=== PATIENT | female | born 1955 | race Caucasian/White ===

== ENCOUNTER 2017-10-17 16:54 | Emergency (ER) | payer OTHER, SELFPAY ==
[2017-10-17 16:55] VITALS: BP 143/96; PULSE 70; RESP 18; TEMP 36.7; O2SAT 99; BMI 34.8
--- NOTE | 2017-10-17 17:35 | US_ITS ---
STUDY: VENOUS DOPPLER ULTRASOUND - LEFT LOWER EXTREMITY REASON FOR EXAM: Female, 62 years old. Knee pain TECHNIQUE: Ultrasound evaluation of the deep vein system to include wheatley-scale imaging and compression was performed. Wheatley-scale imaging and Doppler sonographic evaluation, including duplex spectral analysis and qualitative color flow sonography, was performed. COMPARISON: None. FINDINGS: Common Femoral Vein: Normal compression, spontaneity and augmentation. Normal color Doppler. Common Femoral Vein/Greater Saphenous Junction: Normal compression. No internal echoes are seen. Deep Femoral Vein: Not imaged Femoral Proximal: Normal compression. No internal echoes are seen. Femoral Middle: Normal compression, spontaneity and augmentation. Normal color Doppler. Femoral Distal: Normal compression. No internal echoes are seen. Popliteal Vein: Normal compression, spontaneity and augmentation. Normal color Doppler. Posterior Tibial Vein: Normal compression. No internal echoes are seen. Peroneal Vein: Normal compression. No internal echoes are seen. US/Venous Duplex Imag/Limited/Uni IMPRESSION: There is no evidence of acute DVT. Electronically Signed: Riccardo Mckeon MD at 18:26 EST , Service support ,
--- NOTE | 2017-10-17 18:32 | ED.VISSUMM ---
- ER Visit Summary Date of Service: 10/17/17 Chief Complaint: Left leg pain History of Present Illness: The patient is a 62 F Intermittent left lower leg pain for the past 3 months. Recently pain starts in her lower leg radiates up to her left hip. No falls or injuries. 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 She did take Tylenol with moderate improvement of symptoms. Denies any back pain. History of right total knee arthroplasty, does still follow orthopedist unknown name at this time. Saw the urgent care who sent her here for rule out DVT. States mild pain behind the back of the knee. No swelling. No chest pains or shortness of breath. Physical Examination: General: Alert and oriented ?3, no acute distress HEENT: Normocephalic, atraumatic. Moist mucosa membranes Neck: supple, nontender. Cardiovascular: Regular rate and rhythm, no murmurs Respiratory: Normal breath sounds, symmetric, no distress Abdomen: Soft, nontender, nondistended Extremities: Nontender, no edema. Straight leg test in the left was negative. Negative logroll of the left. No swelling. DP pulses intact bilaterally. Neuro: no focal neurological deficits. Test Results: Left lower extremity ultrasound: Negative for DVT. Emergency Department Course and Treatment: Ultrasound obtained which was negative. Patient distal pulses. Symptoms radicular symptoms or concerns for radicular symptoms. Discussed sciatica with the patient. Discussed with progressing symptoms, can try gabapentin for which she will ramp. She will start at home. Continue Tylenol as needed. Follow with her PCP for outpatient testing as needed. All questions were answered. Treatment Plan: [] Disposition: Discharge Impression: Left-sided sciatica This note was generated with [employer] dictation software. It may contain incorrect words, spelling, and punctuation that were not noted in review of the chart prior to signing ED Disposition - Plan for ED Patient: Disposition: Home or Assisted Living Chief Complaint: Lower Extremity Injury Diagnosis: Sciatica of left side Instructions: ED Sciatica Prescriptions: Gabapentin [Neurontin] 100 mg PO TID #60 capsule Referrals: Ivan Javier III, MD [Primary Care Provider] - 5-7 Days Additional Instructions: Start gabapentin 1 tab first day, then 1 tab twice a day the next day, then 3 times a day the following day.
--- NOTE | 2017-10-17 18:37 | ED.DCSUM_ITS ---
- ER Visit Summary Date of Service: 10/17/17 Chief Complaint: Left leg pain History of Present Illness: The patient is a 62 F Intermittent left lower leg pain for the past 3 months. Recently pain starts in her lower leg radiates up to her left hip. No falls or injuries. 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 She did take Tylenol with moderate improvement of symptoms. Denies any back pain. History of right total knee arthroplasty, does still follow orthopedist unknown name at this time. Saw the urgent care who sent her here for rule out DVT. States mild pain behind the back of the knee. No swelling. No chest pains or shortness of breath. Physical Examination: General: Alert and oriented ?3, no acute distress HEENT: Normocephalic, atraumatic. Moist mucosa membranes Neck: supple, nontender. Cardiovascular: Regular rate and rhythm, no murmurs Respiratory: Normal breath sounds, symmetric, no distress Abdomen: Soft, nontender, nondistended Extremities: Nontender, no edema. Straight leg test in the left was negative. Negative logroll of the left. No swelling. DP pulses intact bilaterally. Neuro: no focal neurological deficits. Test Results: Left lower extremity ultrasound: Negative for DVT. Emergency Department Course and Treatment: Ultrasound obtained which was negative. Patient distal pulses. Symptoms radicular symptoms or concerns for radicular symptoms. Discussed sciatica with the patient. Discussed with progressing symptoms, can try gabapentin for which she will ramp. She will start at home. Continue Tylenol as needed. Follow with her PCP for outpatient testing as needed. All questions were answered. Treatment Plan: [] Disposition: Discharge Impression: Left-sided sciatica This note was generated with Zympi dictation software. It may contain incorrect words, spelling, and punctuation that were not noted in review of the chart prior to signing ED Disposition - Plan for ED Patient: Disposition: Home or Assisted Living Chief Complaint: Lower Extremity Injury Diagnosis: Sciatica of left side Instructions: ED Sciatica Prescriptions: Gabapentin [Neurontin] 100 mg PO TID #60 capsule Referrals: Ivan Javier III, MD [Primary Care Provider] - 5-7 Days Additional Instructions: Start gabapentin 1 tab first day, then 1 tab twice a day the next day, then 3 times a day the following day.
[2017-10-17 18:59] VITALS: BP 155/93; PULSE 65; RESP 16
== END 2017-10-17 18:59 | disposition home or self-care (01) ==
LOC: ED 18:41
PROVIDERS: Emergency Provider Emergency Medicine; Family Provider Family Medicine; PCP Family Medicine
DX: M54.32 Sciatica, left side (principal); I10 Essential (primary) hypertension; Z79.891 Long term (current) use of opiate analgesic; Z96.651 Presence of right artificial knee joint; Z79.899 Other long term (current) drug therapy
CPT/HCPCS: 93971; 99282

== ENCOUNTER 2021-01-11 13:40 | Emergency (ER) | payer OTHER, SELFPAY ==
[2021-01-11 13:43] VITALS: BP 104/93; PULSE 68; RESP 16; TEMP 36.4; O2SAT 98; BMI 37.5
[2021-01-11 13:45] VITALS: BP 126/77
--- NOTE | 2021-01-11 14:03 | EKG12_ITS ---
Test Reason : NEAR SYNCOPE Blood Pressure : / mmHG Vent. Rate : 068 BPM Atrial Rate : 068 BPM P-R Int : 164 ms QRS Dur : 090 ms QT Int : 424 ms P-R-T Axes : 045 -02 050 degrees QTc Int : 450 ms Normal sinus rhythm Normal ECG Confirmed by NARCISA MANCERA, FAITH ([id number]), managing editor ANN PENN ([id number]) on 01/12/2021 11:30:26 AM Referred By: AJITH Confirmed By:FAITH BREWSTER MD
[2021-01-11] MEDS: 0.9% Normal Saline 1,000 ML 1000 ML IV (14:17)
[2021-01-11 14:32] LABS: Absolute Lymphocyte Count 2.48 X10^3/uL (0.83-4.51); Absolute Neutrophil Count 3.2 X10^3/uL (2.0-7.7); Basophil# 0.05 X10^3/uL; Basophil% 0.8 % (0-1); Eosinophil# 0.16 X10^3/uL; Eosinophils% 2.5 % (0-5); Hematocrit 39.4 % (37-47); Lymphocyte # 2.48 X10^3/ul (0.83-4.51); Lymphocyte % 39.4 % (19-41); Mean Corpuscular Hgb 30.9 pg (27.0-32.0); Mean Corpuscular Volume 93.6 fL (81-99); Monocyte# 0.39 X10^3/uL; Monocyte% 6.2 % (0-10); NRBC Flagged by Analyzer 0 % (0-5); Neutrophil % 50.9 % (47-70); Platelet Count 239 K/mm3 (150-450); RBC Distribution Width CV 12.1 % (11.6-14.6); RBC Distribution Width SD 42.1 fl (35.1-43.9); Red Blood Count 4.21 M/mm3 (4.2-5.4); White Blood Count 6.3 K/mm3 (4.4-11.0)
[2021-01-11 14:50] LABS: Anion Gap 6 (5-15); BUN 16 mg/dL (7-18); BUN/Creat Ratio 14.7 RATIO (10-20); Calcium,Total 9.9 mg/dL (8.5-10.1); Chloride 104 mmol/L (98-107); Creatinine, Serum 1.09 mg/dL (0.55-1.02); EST Glomerular Filtration Rate 54 mL/min (>60); Est Glom Filt Rate - Afr Amer 65 mL/min (>60); Glucose 122 mg/dL (74-106); Potassium 3.4 mmol/L (3.5-5.1); Sodium Level 141 mmol/L (136-145)
--- NOTE | 2021-01-11 15:08 | EDS_ITS ---
HPI History of Present Illness Chief Complaint: Syncope Narrative Narrative: 65-year-old female patient who reports that she had just feeding finished eating lunch when she had the abrupt onset of a sharp left lower quadrant pain. It was 8 out of 10 at worst and it is 2 out of 10 currently. She states that during this episode she felt warm, diaphoretic, and lightheaded. She did not pass out. She denies any chest pain, palpitations, shortness of breath, or nausea. Patient reports that she has had intermittent left lower quadrant pain for the past 9 years. Last episode was 3 to 4 weeks ago. 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 [facility] Medical History Arthritis Hypertension Home Medications lisinopril 20 mg PO DAILY 10/29/13 [History Last Taken Unknown] hydrochlorothiazide 12.5 mg PO DAILY 01/11/21 [History Last Taken Unknown] meloxicam 15 mg PO DAILY 01/11/21 [History Last Taken Unknown] Allergy/AdvReac Type Severity Reaction Status Date / Time Penicillins Allergy Rash Verified 01/11/21 13:45 Sulfa (Sulfonamide Allergy Rash Verified 01/11/21 13:45 Antibiotics) Social History Smoking Status: Never smoker [facility] ED Constitutional Constitutional ED: Denies chills, fever(s) or sweats Eyes Eyes: Denies change in vision ENT ENT ED: Denies sore throat Cardiovascular Cardiovascular: Denies chest pain Respiratory/Chest Respiratory/Chest: Denies cough, dyspnea or dyspnea on exertion Gastrointestinal Gastrointestinal: Reports abdominal pain; Denies diarrhea, melena, nausea or vomiting Genitourinary Genitourinary ED: Denies dysuria or urinary frequency Musculoskeletal Musculoskeletal: Denies myalgias Integumentary Denies rash Neurologic Neurologic: Denies headache(s), paresthesias or weakness EXAM Physical Exam Const Vital Signs: 01/11/21 13:43 01/11/21 13:45 Temperature 97.6 F L Temperature Source Oral Pulse Rate 68 Respiratory Rate 16 Respiratory Effort Normal Non-Labored Respiratory Pattern Normal Blood Pressure 104/93 H 126/77 H Blood Pressure Mean 96 93 Pulse Ox 98 Oxygen Delivery Method Room Air Positive well nourished and well developed General Appearance ED: well developed HEENT Reports normocephalic and head/scalp atraumatic Eyes PERRL Neck no lymphadenopathy, supple and no JVD General: Negative for tenderness Resp normal respiratory effort and clear to auscultation bilaterally Cardio regular rate, regular rhythm and no murmurs GI normal to inspection, nondistended, normoactive bowel sounds and non-tender GI Narrative: No guarding, rebound, or peritoneal signs. Palpation: soft Back/Spine Back/Spine Narrative: Nontender. Extremity General Extremety ED: Negative for edema or tenderness General Extremity: Negative for edema Neuro oriented x3, CN's II-XII intact bilaterally and no sensory deficits noted Sensorium / Orientation: alert Motor Exam: strength 5/5 throughout Psych mental status grossly normal Skin no rashes or lesions noted MDM MDM Lab Data Labs: Laboratory Results - last 24 hr 01/11/21 01/11/21 13:03 13:03 WBC 6.3 RBC 4.21 Hgb 13.0 Hct 39.4 MCV 93.6 MCH 30.9 MCHC 33.0 RDW Std Deviation 42.1 RDW Coeff of Sarah 12.1 Plt Count 239 MPV 12.0 Immature Gran % (Auto) 0.200 Neut % (Auto) 50.9 Lymph % (Auto) 39.4 Stewart % (Auto) 6.2 Eos % (Auto) 2.5 Baso % (Auto) 0.8 Absolute Neuts (auto) 3.2 Absolute Lymphs (auto) 2.48 Nucleated RBC % 0 Sodium 141 Potassium 3.4 L Chloride 104 Carbon Dioxide 31.0 Anion Gap 6 BUN 16 Creatinine 1.09 H Estim Creat Clear Calc 43.70 Est GFR (MDRD) Af Amer 65 Est GFR (MDRD) Non-Af 54 L BUN/Creatinine Ratio 14.7 Glucose 122 H Calcium 9.9 Troponin I < 0.015 EKG Initial EKG: Attestation: I personally reviewed and interpreted this EKG as follows: Interpretation: Sinus Rhythm Comments: EKG is sinus at [address] changes. No evidence of Brugada or HOCM. Normal intervals. Treatment and Re-Evaluation Comments:: Emergency department course: Patient had an IV placed. She was given a liter normal saline. She is resting comfortably. Her history is consistent with dehydration exacerbated by a vagal episode after her abdominal pain. She has no abdominal pain at this time reports that it is intermittent and chronic in nature. Treatment plan: Patient be discharged instructions to push fluids. Follow-up with her primary care physician in 3 to 5 days. Return to the emergency department for any worsening symptoms. Disposition: To home in improved and stable condition. This note was generated with Ticket[employer] dictation software. It may contain incorrect words, spelling, and punctuation that were not noted in review of the chart prior to signing. Discharge Plan Triage Chief Complaint: Syncope ED Provider: Spencer Bunrham Dx/Rx/DC Orders Clinical Impression: Acute dehydration, Vasovagal near syncope Instructions: ED Near-Fainting- Vagal Reaction Prescriptions: No Action lisinopril 20 MG tablet 20 mg PO DAILY RF: 0 meloxicam 15 mg Tablet 15 mg PO DAILY RF: 0 hydrochlorothiazide 12.5 mg Tablet 12.5 mg PO DAILY RF: 0 Primary Care Provider: Chuck Goldstein Referrals: Chuck Goldstein MD [Primary Care Provider] - 3-5 Days
[2021-01-11 15:23] VITALS: BP 126/73; PULSE 71; RESP 19; O2SAT 100
== END 2021-01-11 15:42 | disposition home or self-care (01) ==
LOC: ED 14:30
PROVIDERS: Emergency Provider Emergency Medicine; PCP Family Medicine
DX: E86.0 Dehydration (principal); R55 Syncope and collapse; I10 Essential (primary) hypertension; M19.90 Unspecified osteoarthritis, unspecified site; Z79.899 Other long term (current) drug therapy
CPT/HCPCS: 80048; 84484; 85025; 93005; 96360; 99285

== ENCOUNTER 2021-06-09 14:49 | Outpatient (CLI) | payer OTHER, SELFPAY ==
[2021-06-09] MEDS: 0.9% Saline Lock 10 ML Syringe IV (15:35)
[2021-06-09 15:36] VITALS: BP 114/76; PULSE 70; RESP 16; TEMP 36.6; O2SAT 100; BMI 33.4
[2021-06-09 16:36] VITALS: BP 139/86; PULSE 56; RESP 16; TEMP 37; O2SAT 100
[2021-06-09 17:33] VITALS: BP 146/79; PULSE 63; RESP 16; TEMP 36.8; O2SAT 100
== END 2021-06-09 17:36 | disposition home or self-care (01) ==
LOC: MS3OUT 14:52 → MS3 14:52
PROVIDERS: PCP Family Medicine; Referring Provider Nurse Practitioner Adult Health; Visit Provider Nurse Practitioner Adult Health
DX: Z23 Encounter for immunization (principal); U07.1 COVID-19
CPT/HCPCS: J7050; M0245; Q0245; A4216

== ENCOUNTER 2022-07-11 15:57 | Emergency (ER) | payer MEDICARE, SELFPAY ==
[2022-07-11 15:58] VITALS: BP 158/88; PULSE 74; RESP 16; TEMP 35.8; O2SAT 98; BMI 35.4
[2022-07-11 16:27] LABS: Mucous, Urine 0 SEEN /hpf (<or=2+); Red Blood Cells-Urine 0 SEEN /hpf (0-5); Squamous Epithelial Cells - UA 0 SEEN /hpf (5-10)
[2022-07-11 16:28] LABS: Absolute Lymphocyte Count 2.37 X10^3/uL (0.83-4.51); Absolute Neutrophil Count 5.3 X10^3/uL (2.0-7.7); Basophil# 0.04 X10^3/uL; Basophil% 0.5 % (0-1); Eosinophil# 0.07 X10^3/uL; Eosinophils% 0.8 % (0-5); Lymphocyte # 2.37 X10^3/ul (0.83-4.51); Lymphocyte % 27.9 % (19-41); Mean Corp Hgb Conc 32.6 g/dL (32-36); Mean Corpuscular Hgb 30.8 pg (27.0-32.0); Mean Corpuscular Volume 94.5 fL (81-99); Monocyte# 0.68 X10^3/uL; NRBC Flagged by Analyzer 0 % (0-5); Neutrophil # 5.32 X10^3/uL (2.7-7.7); Neutrophil % 62.6 % (47-70); Platelet Count 251 K/mm3 (150-450); RBC Distribution Width CV 12.1 % (11.6-14.6); RBC Distribution Width SD 42.4 fl (35.1-43.9); Red Blood Count 4.55 M/mm3 (4.2-5.4); White Blood Count 8.5 K/mm3 (4.4-11.0)
[2022-07-11 16:31] LABS: Color, Urine Yellow (Yellow); Glucose, Dipstick Normal (Normal); Ketone-Dipstick Negative (Negative); Leukocyte Esterase-Dipstick 25 /ul (Negative); Nitrite-Dipstick Negative (Negative); Occult Blood-Urine 50 /ul (Negative); Protein-Dipstick Negative (Negative); Specific Gravity, Urine 1.015 (1.002-1.030); Urine Bilirubin Dipstick Negative (Negative); Urine Clarity Clear (Clear); Urine Urobilinogen Normal (Normal)
[2022-07-11 16:34] LABS: Bacteria RARE /hpf (None Seen); White Blood Cells 0-5 SEEN /hpf (0-5)
[2022-07-11 16:42] LABS: Anion Gap 6 (5-15); BUN 12 mg/dL (7-18); Calcium,Total 9.6 mg/dL (8.5-10.1); Chloride 103 mmol/L (98-107); EST Glomerular Filtration Rate 76 mL/min (>60); Est Glom Filt Rate - Afr Amer 92 mL/min (>60); Estimated Creatinine Clearance 55.45 ml/min; Glucose 98 mg/dL (74-106); Potassium 3.6 mmol/L (3.5-5.1); Sodium Level 140 mmol/L (136-145)
--- NOTE | 2022-07-11 18:16 | CT_ITS ---
STUDY: CT ABDOMEN AND PELVIS WITH CONTRAST REASON FOR EXAM: Female, 67 years old. Left-sided pain, tympanic, constipation history of RADIATION DOSAGE (If Supplied By Facility): CTDIvol = ( 15.07 ) mGy, DLP = ( 825.31 ) mGycm TECHNIQUE: Transaxial images were obtained from the dome of the diaphragm to the symphysis pubis without oral contrast. IV 100mL Isovue-370 was administered. Sagittal and coronal images were reconstructed. Individualized dose optimization techniques were used for this CT. COMPARISON: None. FINDINGS: There is 0.7 cm right lower lobe nodule. The visualized portions of the heart are within normal limits. Normal liver. Normal gallbladder and extrahepatic biliary system. Normal spleen. Normal pancreas. Normal bilateral adrenal glands. Normal right kidney. Normal left kidney. Normal visualized stomach. Normal small intestine. There is abundant stool in the colon. The appendix is visualized and appears normal. Normal abdominal aorta. Normal inferior vena cava. Normal retroperitoneum. Normal urinary bladder. There is absence of the uterus consistent with a prior hysterectomy. There is no free fluid in the abdomen or pelvis. Normal abdominal wall. There is dextroscoliosis with degenerative change of the spine. CT/Abdomen/Pelvis W IV Cont ONLY IMPRESSION: Abundant stool. No obstruction. Right lower lung nodule. Dedicated imaging of the chest recommended for further evaluation. Electronically Signed: Faustino Hong MD at 19:30 [facility] ,
--- NOTE | 2022-07-11 18:25 | ED.VIS.GI ---
HPI HPI - GI History of Present Illness Chief Complaint: Abd Pain Detail of Chief Complaint: Left upper and left lower quadrant abdominal pain that radiates to the ante Abdominal Pain/Flank Pain Onset: Today Context: Sudden Onset Timing: Continuous and Waxes and wanes Quality: Aching Location: LUQ and LLQ Current Severity: Mild Maximum Severity: Moderate Worsened by: Nothing Relieved by: Nothing Nausea/Vomiting/Emesis GI Symptom: Negative for Nausea or Vomiting Diarrhea/Melena/Hematochezia GI Symptom: Negative for Diarrhea, Melena or Hematochezia Associated Symptoms Associated Symptoms: Negative for Dysuria, Frequency, Hematuria or Urgency Narrative Narrative: Patient is a 67-year-old woman who reports she has had a twisted bowel in the past. She is never had surgery. She did have a colonoscopy by Dr. Betito Javier and had multiple polyps that were removed. This was not recent. She has not had a bowel movement today which is abnormal for her. She had 3 bowel movements on Saturday and 3 bowel movements on Saturday. She has not passed gas for the past 12 hours. She does have history of adhesions. She denies dysuria, frequency, urgency or hematuria. Prior similar symptoms: Yes Recent Illness/Hospitalization: No PFSH PFSH Medical History Arthritis Hypertension Home Medications lisinopril 20 mg tablet 20 mg PO DAILY 10/29/13 [History Last Taken Unknown] meloxicam 15 mg tablet 15 mg PO DAILY PRN Pain 01/11/21 [History Last Taken Unknown] lactobacillus combination no.4 3 billion cell capsule (Probiotic) 3,000 mmu cells PO DAILY 06/09/21 [History Last Taken Unknown] multivitamin 1 tab PO DAILY 06/09/21 [History Last Taken Unknown] Allergy/AdvReac Type Severity Reaction Status Date / Time Penicillins Allergy Rash Verified 07/11/22 15:58 Sulfa (Sulfonamide Allergy Rash Verified 07/11/22 15:58 Antibiotics) Social History (Updated 07/11/22 @ 18:[address] Noé Sultana MD) household members: spouse Smoking Status: Never smoker substance use type: does not use ROS ROS ED Constitutional Constitutional ED: Denies chills, fever(s), subjective, sweats or weight loss ENT ENT ED: Denies ear pain, rhinorrhea or sore throat Cardiovascular Cardiovascular: Denies chest pain, orthopnea, palpitations, paroxysmal nocturnal dyspnea or racing heartbeat Respiratory/Chest Respiratory/Chest: Denies cough, dyspnea, dyspnea on exertion, orthopnea or paroxysmal nocturnal dyspnea Gastrointestinal Gastrointestinal: Reports abdominal pain and constipation; Denies diarrhea, melena, nausea or vomiting Genitourinary Genitourinary ED: Denies dysuria, hematuria or urinary frequency Musculoskeletal Musculoskeletal: Denies arthralgias, back pain, myalgias or neck pain Integumentary Denies Abrasions or rash Neurologic Neurologic: Denies headache(s), paresthesias or other Hematologic/Lymphatic Hematologic/Lymphatic: Denies easy bleeding or easy bruising EXAM Physical Exam Const Vital Signs: 07/11/22 15:58 Temperature 96.5 F L Temperature Source Temporal Pulse Rate 74 Respiratory Rate 16 Blood Pressure 158/88 H Blood Pressure Mean 111 Pulse Ox 98 Oxygen Delivery Method Room Air Positive well nourished, well developed and obese General Appearance ED: well developed and NAD; Negative for pallor Nutritional Appearance: obese HEENT Reports TM's clear and dry mucous membranes; Denies moist mucous membranes normocephalic Tympanic Membrane ED: Yes TM's clear Mouth ED: Yes dry mucous membranes Mouth: dry mucous membranes Eyes PERRL and EOMs intact bilaterally General Eye ED: Yes pale conjunctiva and scleral icterus Neck no lymphadenopathy, supple and no JVD Resp normal respiratory effort and clear to auscultation bilaterally Cardio regular rate, regular rhythm, S1 normal heart sound, S2 normal heart sound and no murmurs GI no masses; Negative for non-tender or non-distended Inspection: abdominal distention Auscultation: hypoactive bowel sounds Palpation: soft, tender LLQ and LUQ and guarding LLQ and LUQ; Negative for hepatomegaly, splenomegaly, hernia, mass or pulsatile mass Back/Spine no CVA tenderness Thoracic Spine / Upper Back: Negative for thoracic spinal tenderness Lumbar Spine / Lower Back: Negative for lumbar spinal tenderness Extremity full ROM General Extremety ED: Negative for edema or tenderness General Extremity: Negative for edema Neuro CN's II-XII intact bilaterally, moves all extremities and no sensory deficits noted Sensorium / Orientation: alert Motor Exam: strength 5/5 throughout Psych mental status grossly normal and thought process normal Skin no wounds General Skin Exam: Negative for jaundice or pallor Lesions: no lesions Rashes: no rashes MDM MDM MDM Narrative Medical decision making narrative: Patient has a distended and with tympany and significant tenderness on the left. Differential would include diverticulitis, sigmoid volvulus, abdominal pain of unknown etiology abnormal presentation for renal calculi. CBC, basic medical panel and UA were obtained. Since the work-up is negative a CT was ordered. Lab Data Attestation: I reviewed the patient's lab results. Lab results narrative: CBC and H&H are normal. Basic metabolic panel is normal. Urine is normal. Labs: Laboratory Results - last 24 hr 07/11/22 07/11/22 07/11/22 16:15 16:22 16:22 WBC 8.5 RBC 4.55 Hgb 14.0 Hct 43.0 MCV 94.5 MCH 30.8 MCHC 32.6 RDW Std Deviation 42.4 RDW Coeff of Sarah 12.1 Plt Count 251 MPV 11.0 Immature Gran % (Auto) 0.200 Neut % (Auto) 62.6 Lymph % (Auto) 27.9 [place] % (Auto) 8.0 Eos % (Auto) 0.8 Baso % (Auto) 0.5 Absolute Neuts (auto) 5.3 Absolute Lymphs (auto) 2.37 Nucleated RBC % 0 Sodium 140 Potassium 3.6 Chloride 103 Carbon Dioxide 31.0 Anion Gap 6 BUN 12 Creatinine 0.80 Estim Creat Clear Calc 55.45 Est GFR (MDRD) Af Amer 92 Est GFR (MDRD) Non-Af 76 BUN/Creatinine Ratio 15.0 Glucose 98 Calcium 9.6 Urine Color Yellow Urine Clarity Clear Urine pH 6.0 Ur Specific Wayne 1.015 Urine Protein Negative Urine Glucose (UA) Normal Urine Ketones Negative Urine Occult Blood 50 H Urine Nitrite Negative Urine Bilirubin Negative Urine Urobilinogen Normal Ur Leukocyte Esterase 25 H Urine RBC 0 SEEN Urine WBC 0-5 SEEN Ur Squamous Epith Cells 0 SEEN Urine Bacteria RARE Urine Mucus 0 SEEN Radiography Diagnostic Testing: Clinical Impression(s) from Imaging Studies Abdomen/Pelvis CT 07/11/22 18:16 IMPRESSION: Abundant stool. No obstruction. Right lower lung nodule. Dedicated imaging of the chest recommended for further evaluation. Electronically Signed: Faustino Hong MD at 19:30 EST Reading Location ID and State: [facility] / [place] , Service support , Chest CT 07/11/22 19:46 IMPRESSION: Calcified and noncalcified nodules of the lungs. Recommend follow-up in 3-6 months. Aneurysmal dilatation of the ascending aorta. Electronically Signed: Faustino Hong MD at 20:42 EST Reading Location ID and State: [address] [place] [address] , Service support , CT of the chest was reviewed. There is aneurysmal dilatation of the ascending thoracic aorta. There are calcified and noncalcified nodules of the lung. Recommendation is follow-up CT. We will have patient referred to pulmonary for outpatient follow-up and reevaluation. Discharge Plan Triage Chief Complaint: Abd Pain ED Provider: Noé Sultana Dx/Rx/DC Orders Clinical Impression: Left sided abdominal pain of unknown cause, Multiple pulmonary nodules determined by computed tomography of lung, Thoracic ascending aortic aneurysm, High blood pressure Instructions: ED Abdominal Pain Unkn Cause Fem, Aneurisma de aorta tor?cica Prescriptions: No Action lisinopril 20 MG tablet 20 mg PO DAILY meloxicam 15 mg Tablet 15 mg PO DAILY PRN (Reason: Pain) multivitamin Tablet 1 tab PO DAILY Probiotic 3 billion cell Capsule 3,000 mmu cells PO DAILY Primary Care Provider: Chuck Goldstein Referrals: Efra Rg MD [Med Staff - Active Staff] - 1-2 Weeks Chuck Goldstein MD [Primary Care Provider] - As Needed Disposition Disposition: Home, Self Care
--- NOTE | 2022-07-11 19:46 | CT_ITS ---
STUDY: CT CHEST, ABDOMEN T PELVIS WITHOUT CONTRAST REASON FOR EXAM: Female, 67 years old. Right lung nodule RADIATION DOSAGE (If Supplied By Facility): CTDIvol = ( 15.35 ) mGy, DLP = ( 533.26 ) mGycm TECHNIQUE: Transaxial imaging was performed without the administration of intravenous contrast material. Multiplanar coronal and sagittal images were reformatted. Individualized dose optimization techniques were used for this CT. COMPARISON: CT abdomen and pelvis FINDINGS: CHEST There is 0.8 x 0.6 cm right middle lobe nodule, series 4 image 70/120. There is 0.2 cm calcified right lower lobe nodule. There is a 0.2 cm calcified left upper lobe nodule. There is no demonstrated pleural abnormality. Normal heart and pericardium. There are no calcifications of the coronary arteries. Normal mediastinum. Normal hilar regions. Normal unenhanced pulmonary arteries. There is 4.2 cm aneurysmal dilatation of the ascending aorta. There are multi-level degenerative changes of the thoracic spine. There is no demonstrated abnormality of the visualized upper abdomen. CT/Chest without Contrast IMPRESSION: Calcified and noncalcified nodules of the lungs. Recommend follow-up in 3-6 months. Aneurysmal dilatation of the ascending aorta. Electronically Signed: Faustino Hong MD at 20:42 EST ,
== END 2022-07-11 21:21 | disposition home or self-care (01) ==
PROVIDERS: Emergency Provider Emergency Medicine; PCP Family Medicine; Visit Provider Emergency Medicine
DX: R10.32 Left lower quadrant pain (principal); R10.12 Left upper quadrant pain; I10 Essential (primary) hypertension; K59.00 Constipation, unspecified; E66.9 Obesity, unspecified
CPT/HCPCS: 71250; 74177; 80048; 81001; 85025; 99283; Q9967; A4216

== ENCOUNTER 2022-09-09 12:53 | Emergency (ER) | payer MEDICARE, SELFPAY ==
[2022-09-09 12:54] VITALS: BP 169/94; PULSE 69; RESP 16; TEMP 36.6; O2SAT 100; BMI 33.8
[2022-09-09 14:00] LABS: Mucous, Urine 0 SEEN /hpf (<or=2+); Red Blood Cells-Urine 0 SEEN /hpf (0-5); White Blood Cells 0 SEEN /hpf (0-5)
[2022-09-09 14:01] LABS: Absolute Lymphocyte Count 1.91 X10^3/uL (0.83-4.51); Absolute Neutrophil Count 3.2 X10^3/uL (2.0-7.7); Basophil# 0.03 X10^3/uL; Basophil% 0.5 % (0-1); Eosinophil# 0.24 X10^3/uL; Eosinophils% 4.1 % (0-5); Hematocrit 42.6 % (37-47); Hemoglobin 14.6 g/dL (12.0-15.0); Lymphocyte # 1.91 X10^3/ul (0.83-4.51); Lymphocyte % 32.6 % (19-41); Mean Corp Hgb Conc 34.3 g/dL (32-36); Mean Corpuscular Hgb 31.5 pg (27.0-32.0); Mean Platelet Vol. 11.5 fl (6.2-12.0); Monocyte# 0.47 X10^3/uL; NRBC Flagged by Analyzer 0 % (0-5); Neutrophil # 3.19 X10^3/uL (2.7-7.7); Neutrophil % 54.6 % (47-70); Platelet Count 189 K/mm3 (150-450); RBC Distribution Width SD 40.3 fl (35.1-43.9); Red Blood Count 4.63 M/mm3 (4.2-5.4); White Blood Count 5.9 K/mm3 (4.4-11.0)
[2022-09-09 14:03] LABS: Color, Urine Yellow (Yellow); Glucose, Dipstick Normal (Normal); Ketone-Dipstick Negative (Negative); Leukocyte Esterase-Dipstick Negative /ul (Negative); Nitrite-Dipstick Negative (Negative); Occult Blood-Urine 150 /ul (Negative); Protein-Dipstick Negative (Negative); Urine Bilirubin Dipstick Negative (Negative); Urine Clarity Sl. Cloudy (Clear); Urine Urobilinogen Normal (Normal)
[2022-09-09 14:10] LABS: Bacteria RARE /hpf (None Seen); Squamous Epithelial Cells - UA 0-5 SEEN /hpf (5-10)
[2022-09-09 14:18] LABS: ALB/GLOB Ratio 1.1 RATIO (0.9-2.4); AST(SGOT) 17 U/L (15-37); Alanine Aminotransfer ALT/SGPT 19 U/L (13-56); Albumin, Serum 3.8 g/dL (3.2-5.0); Alkaline Phosphatase 62 U/L (45-117); Anion Gap 5 (5-15); BUN 10 mg/dL (7-18); BUN/Creat Ratio 12.4 RATIO (10-20); Calcium,Total 9.3 mg/dL (8.5-10.1); Chloride 107 mmol/L (98-107); Creatinine, Serum 0.81 mg/dL (0.55-1.02); EST Glomerular Filtration Rate 76 mL/min (>60); Est Glom Filt Rate - Afr Amer 92 mL/min (>60); Estimated Creatinine Clearance 54.76 ml/min; Globulin 3.6 g/dL (2.2-4.2); Glucose 118 mg/dL (74-106); Lipase 148 U/L (73-393); Potassium 3.9 mmol/L (3.5-5.1); Protein, Total 7.4 g/dL (6.4-8.2); Sodium Level 140 mmol/L (136-145)
--- NOTE | 2022-09-09 15:05 | ED.VIS.GI ---
HPI HPI - GI History of Present Illness Chief Complaint: Abd Pain Narrative Narrative: 67-year-old female presents with left lower quadrant abdominal pain. She states it started about 11 AM this morning. She has a history of this intermittently since . She states that she does have intermittent bowel movements. She describes them as small hard balls. She also has mucus. She states he is not taking anything currently out of stool softeners on Saturday. She denies any urinary complaints. She denies nausea or vomiting. She denies fever. She states that this pain comes and goes. It is better with laying supine. Currently she states the pain is resolving. She describes it as cramping. [facility] Medical History Arthritis Constipation Decreased libido GERD (gastroesophageal reflux disease) Hypertension BRYANNA (obstructive sleep apnea) SVT (supraventricular tachycardia) Vaginal dryness Home Medications lisinopril 20 mg tablet 20 mg PO DAILY 10/29/13 [History Last Taken Unknown] multivitamin 1 tab PO DAILY 06/09/21 [History Last Taken Unknown] ascorbate calcium (vitamin C) 500 mg tablet 500 mg PO DAILY 07/24/22 [History Last Taken Unknown] atorvastatin 20 mg tablet 20 mg PO QPM 07/24/22 [History Last Taken Unknown] cholecalciferol (vitamin D3) 25 mcg (1,000 unit) capsule 25 mcg PO DAILY 07/24/22 [History Last Taken Unknown] docusate sodium 100 mg capsule 100 mg PO DAILY 07/24/22 [History Last Taken Unknown] zinc gluconate 50 mg tablet 50 mg PO DAILY 07/24/22 [History Last Taken Unknown] Allergy/AdvReac Type Severity Reaction Status Date / Time Penicillins Allergy Rash Verified 09/09/22 12:57 Sulfa (Sulfonamide Allergy Rash Verified 09/09/22 12:57 Antibiotics) Surgical History H/O excision of mass History of bilateral carpal tunnel release History of breast lump/mass excision History of section History of hysterectomy History of right knee joint replacement Social History household members: spouse Smoking Status: Never smoker substance use type: does not use ROS ROS ED Constitutional Constitutional ED: Denies chills, fever(s) or sweats Eyes Eyes: Denies blurry vision or change in vision ENT ENT ED: Denies ear pain or sore throat Cardiovascular Cardiovascular: Denies chest pain, palpitations or racing heartbeat Respiratory/Chest Respiratory/Chest: Denies cough, dyspnea or sputum Gastrointestinal Gastrointestinal: Reports abdominal pain and constipation; Denies diarrhea, nausea or vomiting Genitourinary Genitourinary ED: Denies dysuria, hematuria or urinary frequency Musculoskeletal Musculoskeletal: Denies arthralgias, myalgias or neck pain Integumentary Denies abscess, Abrasions or rash Neurologic Neurologic: Denies headache(s), paresthesias or weakness Psychiatric Psychiatric: Denies anxiety, depression, suicidal ideation or suicidal thoughts Endocrine Endocrinology: Denies polydipsia or polyuria EXAM Physical Exam Const Vital Signs: 09/09/22 12:54 Temperature 97.8 F Temperature Source Temporal Pulse Rate 69 Respiratory Rate 16 Blood Pressure 169/94 H Blood Pressure Mean 119 Pulse Ox 100 Oxygen Delivery Method Room Air Positive well nourished General Appearance ED: NAD HEENT Reports moist mucous membranes normocephalic and atraumatic Eyes PERRL and EOMs intact bilaterally Resp normal respiratory effort and clear to auscultation bilaterally Auscultation: Negative for rales, rhonchi or wheezes Cardio regular rate and regular rhythm GI non-distended Palpation: tender LLQ; Negative for guarding or rigid Extremity full ROM Neuro CN's II-XII intact bilaterally and moves all extremities Sensorium / Orientation: alert Motor Exam: strength 5/5 throughout Psych mental status grossly normal and thought process normal Skin no wounds MDM MDM MDM Narrative Medical decision making narrative: 67-year-old female presenting with left lower quad abdominal pain which has been intermittent since [place] patient started. She is also had this prior to [place]. She states she has a history of constipation and she is making hard stools at home. She is also straining to have bowel movements and states there is some mucousy stool. She denies black or bloody stool. Denies fever chills. Denies nausea or vomiting. Differential diagnosis currently constipation, diverticulitis, colitis, UTI, pyelonephritis, kidney stone. Urinalysis obtained to test for infection versus occult blood and is free from infection or occult blood. CBC obtained to assess for white blood cell count and differential. CBC is completely normal with a white blood cell count of 5.9 without left shift. Hemoglobin macular stable. Platelets also within normal notes. CMP to assess liver function, renal function, glucose and anion gap. This also appears to be normal with exception of a glucose 118 and no anion gap. Lipase was normal at 148. Given patient's ultimately normal vital signs and work-up I feel she is safe to be discharged home. I recommended that she take MiraLAX a full Daily for 3 days. Return precautions were discussed. I do not believe she needs a CT scan at this time. Impression: 1. Left lower quad abdominal pain 2. Constipation Lab Data Attestation: I reviewed the patient's lab results. Labs: Laboratory Results - last 24 hr 09/09/22 09/09/22 09/09/22 13:50 13:55 13:55 WBC 5.9 RBC 4.63 Hgb 14.6 Hct 42.6 MCV 92.0 MCH 31.5 MCHC 34.3 RDW Std Deviation 40.3 RDW Coeff of Sarah 12.0 Plt Count 189 MPV 11.5 Immature Gran % (Auto) 0.200 Neut % (Auto) 54.6 Lymph % (Auto) 32.6 [place] % (Auto) 8.0 Eos % (Auto) 4.1 Baso % (Auto) 0.5 Absolute Neuts (auto) 3.2 Absolute Lymphs (auto) 1.91 Nucleated RBC % 0 Sodium 140 Potassium 3.9 Chloride 107 Carbon Dioxide 28.0 Anion Gap 5 BUN 10 Creatinine 0.81 Estim Creat Clear Calc 54.76 Est GFR (MDRD) Af Amer 92 Est GFR (MDRD) Non-Af 76 BUN/Creatinine Ratio 12.4 Glucose 118 H Calcium 9.3 Total Bilirubin 0.60 AST 17 ALT 19 Alkaline Phosphatase 62 Total Protein 7.4 Albumin 3.8 Globulin 3.6 Albumin/Globulin Ratio 1.1 Lipase 148 Urine Color Yellow Urine Clarity Sl. Cloudy Urine pH 6.0 Ur Specific [place] 1.010 Urine Protein Negative Urine Glucose (UA) Normal Urine Ketones Negative Urine Occult Blood 150 H Urine Nitrite Negative Urine Bilirubin Negative Urine Urobilinogen Normal Ur Leukocyte Esterase Negative Urine RBC 0 SEEN Urine WBC 0 SEEN Ur Squamous Epith Cells 0-5 SEEN Urine Bacteria RARE Urine Mucus 0 SEEN Discharge Plan Triage Chief Complaint: Abd Pain ED Provider: Haja Kruger Dx/Rx/DC Orders Instructions: ED Abdominal Pain Unkn Cause Fem, ED Constipation (Adult) Prescriptions: No Action ascorbate calcium (vitamin C) 500 mg tablet 500 mg PO DAILY atorvastatin 20 mg tablet 20 mg PO QPM cholecalciferol (vitamin D3) 25 mcg (1,000 unit) capsule 25 mcg PO DAILY docusate sodium 100 mg capsule 100 mg PO DAILY zinc gluconate 50 mg tablet 50 mg PO DAILY lisinopril 20 MG tablet 20 mg PO DAILY multivitamin Tablet 1 tab PO DAILY Primary Care Provider: Chuck Goldstein Referrals: Chuck Goldstein MD [Primary Care Provider] - Disposition Disposition: Home, Self Care
== END 2022-09-09 15:12 | disposition home or self-care (01) ==
PROVIDERS: Emergency Provider Student in an Organized Health Care Education/Training Program; PCP Family Medicine; Visit Provider Student in an Organized Health Care Education/Training Program
DX: K59.00 Constipation, unspecified (principal); R10.32 Left lower quadrant pain; I10 Essential (primary) hypertension
CPT/HCPCS: 80053; 81001; 83690; 85025; 99283; A4216

== ENCOUNTER 2022-09-25 14:10 | Observation (INO) | payer MEDICARE, SELFPAY ==
[2022-09-25 14:13] VITALS: BP 121/73; PULSE 71; RESP 20; TEMP 36.6; O2SAT 98; BMI 33.8
--- NOTE | 2022-09-25 14:26 | CT_ITS ---
STUDY: CT BRAIN WITHOUT CONTRAST REASON FOR EXAM: Female, 67 years old. Fall, head injury RADIATION DOSAGE (If Supplied By Facility): CTDIvol = ( 44.99 ) mGy, DLP = ( 812.98 ) mGycm TECHNIQUE: Transaxial CT imaging of the brain was performed without administration of intravenous contrast material. Individualized dose optimization techniques were used for this CT. COMPARISON: No relevant priors. FINDINGS: Normal soft tissue structures. Normal calvarium. Normal size ventricles and extra-axial spaces for the patient''s age. Normal white matter tracts of the cerebral hemispheres. Normal basal ganglia and thalami. Normal brainstem. Normal cerebellum. There is no intracranial hemorrhage. There are no findings of an acute ischemic infarction. Normal visualized paranasal sinuses. CT/Brain/Head without Contrast IMPRESSION: Normal unenhanced CT scan of the brain. Electronically Signed: Solo Dale MD at 15:20 EST ,
--- NOTE | 2022-09-25 14:31 | EDS_ITS ---
HPI History of Present Illness Chief Complaint: Upper Extremity Injury Informant: patient and spouse/S.O. Narrative Narrative: Patient is a 67-year-old female with history of a sending aortic aneurysm that is being monitored presenting after a fall with subsequent right shoulder pain. [place] [employer] [place] when she tripped and somehow fell. She does not remember exactly how she landed but she denies any reported loss of conscious. Bystanders at the scene state that she was talking immediately afterwards. Patient's not sure if she hit her head. She has some tingling of her right hand is claims significant pain in her right shoulder. Received 50 mcg of fentanyl in route. She had some Dariana pain but continues have significant pain. No other complaints at this time. [facility] Medical History Arthritis Constipation Decreased libido GERD (gastroesophageal reflux disease) Hypertension BRYANNA (obstructive sleep apnea) SVT (supraventricular tachycardia) Vaginal dryness Home Medications lisinopril 20 mg tablet 20 mg PO DAILY 10/29/13 [History Last Taken Unknown] multivitamin 1 tab PO DAILY 06/09/21 [History Last Taken Unknown] ascorbate calcium (vitamin C) 500 mg tablet 500 mg PO DAILY 07/24/22 [History Last Taken Unknown] atorvastatin 20 mg tablet 20 mg PO QPM 07/24/22 [History Last Taken Unknown] cholecalciferol (vitamin D3) 25 mcg (1,000 unit) capsule 25 mcg PO DAILY 07/24/22 [History Last Taken Unknown] docusate sodium 100 mg capsule 100 mg PO DAILY 07/24/22 [History Last Taken Unknown] zinc gluconate 50 mg tablet 50 mg PO DAILY 07/24/22 [History Last Taken Unknown] Allergy/AdvReac Type Severity Reaction Status Date / Time Penicillins Allergy Rash Verified 09/25/22 14:15 Sulfa (Sulfonamide Allergy Rash Verified 09/25/22 14:15 Antibiotics) Surgical History H/O excision of mass History of bilateral carpal tunnel release History of breast lump/mass excision History of section History of hysterectomy History of right knee joint replacement Social History household members: spouse Smoking Status: Never smoker substance use type: does not use ROS ROS ED Constitutional Constitutional ED: Denies chills or fever(s) Eyes Eyes: Denies change in vision Cardiovascular Cardiovascular: Denies chest pain Respiratory/Chest Respiratory/Chest: Denies cough Gastrointestinal Gastrointestinal: Denies nausea or vomiting Musculoskeletal Musculoskeletal: Reports other Details: right shoulder pain ; Denies back pain or neck pain Integumentary Denies Abrasions or rash Neurologic Neurologic: Reports paresthesias; Denies headache(s) or weakness Hematologic/Lymphatic Hematologic/Lymphatic: Denies easy bleeding or easy bruising EXAM Physical Exam Const Vital Signs: 09/25/22 14:13 Temperature 97.9 F Temperature Source Temporal Pulse Rate 71 Respiratory Rate 20 H Blood Pressure 121/73 H Blood Pressure Mean 89 Pulse Ox 98 Oxygen Delivery Method Nasal Cannula Positive well nourished and well developed General Appearance ED: well developed and NAD HEENT Reports moist mucous membranes HEENT Narrative: No hemotympanum, no malocclusion normocephalic and atraumatic; Negative for trauma Eyes PERRL and EOMs intact bilaterally Neck full ROM and supple Chest Wall inspection of chest normal and palpation of chest normal Resp normal respiratory effort and clear to auscultation bilaterally Cardio regular rate, regular rhythm and no murmurs GI non-tender and non-distended Extremity Extremity Narrative: Slight deformity of the right proximal humerus with significantly decreased range of motion secondary to pain. There is no negative sulcus sign of the right shoulder. No bony tenderness to the right clavicle. No bony tenderness to the right elbow or the right extremity distally. Pelvis is stable. No rotational deformity of the lower extremities. Neuro oriented x3, CN's II-XII intact bilaterally, moves all extremities and no focal motor deficits Neuro Narrative: Check to paresthesias of the right hand however she has sensation intact to light touch in all dermatomes of the right lower extremity Sensorium / Orientation: alert, oriented to person, oriented to place and oriented to time Motor Exam: muscle tone normal throughout Psych mental status grossly normal Mood & Affect: tearful Skin Trauma: no lacerations or abrasions MDM MDM MDM Narrative Medical decision making narrative: Patient evaluated after mechanical fall and significant pain to her right shoulder. She is not sure if she hit her head so CT of the brain is ordered which is negative for any acute intracranial process. X-ray shows impacted and comminuted right proximal humerus fracture with involvement of the surgical neck. This is reviewed by myself as well as radiology. I spoke with on-call orthopedics, Dr. Gaines, who requested CT for further evaluation to see if this will need surgical intervention. Patient is having significant pain and we are having a hard time gaining adequate pain control. She is given multiple doses of IV fentanyl and then Dilaudid. She does require 1 dose of IV Zofran as well. She is placed in a sling. CT shows a comminuted, displaced, impacted and subluxed fracture of the humeral head and neck. I again spoke with orthopedics who states that this will need follow-up with an upper extremity specialist and likely surgical management. I spoke with the [facility] transfer [facility] about transferring the patient for pain control and where there is upper extremity orthopedics. The transfer line spoke with Dr. Lentz, Ortho on- call, who feel that this does not require emergent surgical intervention and pain control can be handled locally with outpatient clinic follow-up. I will speak with the hospitalist about admission for further pain control. Basic screening labs are obtained. Discharge Plan Dx/Rx/DC Orders Clinical Impression: Closed fracture of proximal end of right humerus, Intractable pain, Fall Disposition Disposition: Acute Care Hospital [facility]
[2022-09-25] MEDS: fentaNYL 100 MCG/2 ML Ampul 50 MCG IV (14:42)
[2022-09-25 14:44] VITALS: BP 128/71; PULSE 68; RESP 18; O2SAT 96
--- NOTE | 2022-09-25 15:13 | RAD_ITS ---
STUDY: X-RAY - RIGHT SHOULDER REASON FOR EXAM: Female, 67 years old. Trauma , deformity TECHNIQUE: 2 view(s) of the shoulder. COMPARISON: None. FINDINGS: There is mild degenerative arthrosis of the glenohumeral articulation. There is hypertrophic osteoarthrosis of the acromioclavicular joint with inferior osseous spur formation. Normal acromion. Impacted fracture of the surgical neck of the proximal humerus. Soft tissue swelling. The soft tissue structures are unremarkable. Normal visualized pulmonary apex. RAD/Shoulder min 2 Views IMPRESSION: Impacted fracture of the surgical neck of the proximal humerus. Degenerative changes. Electronically Signed: Solo Dale MD at 15:24 EST ,
[2022-09-25] MEDS: HYDROmorphone 0.5 MG/0.5 ML SYRINGE IV ×4 (15:22→19:52)
[2022-09-25] MEDS: Ondansetron 4 MG/2 ML Vial IV (15:44)
--- NOTE | 2022-09-25 15:47 | CT_ITS ---
INDICATION: Trauma, deformity, fracture EXAMINATION: CT BONE - CT Upper Extremity W/O Contrast Injection TECHNIQUE: Helically acquired images were obtained of the right shoulder. 2-D reformats were performed by the technologist. A radiation dose optimization technique was used for this scan. IV Contrast dosage and agent: None. COMPARISON: Right shoulder series same date FINDINGS: SOFT TISSUES: Small shoulder effusion.. No radiopaque foreign body. BONES/JOINTS: Comminuted, impacted and displaced fracture of the humeral head and surgical neck with caudal subluxation of the humeral head. Acromioclavicular joint anatomically maintained. No sclerotic or destructive changes. CT/Extremity Upper without Contra IMPRESSION: Comminuted, displaced, impacted and subluxed fracture of the humeral head and neck.. Electronically Signed: Rambo Delgado MD at 16:23 EST ,
[2022-09-25 17:24] LABS: Absolute Lymphocyte Count 0.97 X10^3/uL (0.83-4.51); Absolute Neutrophil Count 10.2 X10^3/uL (2.0-7.7); Basophil# 0.02 X10^3/uL; Basophil% 0.2 % (0-1); Eosinophil# 0.02 X10^3/uL; Eosinophils% 0.2 % (0-5); Hematocrit 38.8 % (37-47); Lymphocyte # 0.97 X10^3/ul (0.83-4.51); Lymphocyte % 8.2 % (19-41); Mean Corp Hgb Conc 33.5 g/dL (32-36); Mean Corpuscular Hgb 31.3 pg (27.0-32.0); Mean Corpuscular Volume 93.5 fL (81-99); Mean Platelet Vol. 11.5 fl (6.2-12.0); Monocyte# 0.59 X10^3/uL; NRBC Flagged by Analyzer 0 % (0-5); Neutrophil # 10.24 X10^3/uL (2.7-7.7); Platelet Count 196 K/mm3 (150-450); RBC Distribution Width CV 11.9 % (11.6-14.6); RBC Distribution Width SD 40.9 fl (35.1-43.9); Red Blood Count 4.15 M/mm3 (4.2-5.4); White Blood Count 11.9 K/mm3 (4.4-11.0)
--- NOTE | 2022-09-25 17:54 | HP.PCM.HOS_ITS ---
HPI - General General Date of Admission: 09/25/22 Date of Service: 09/25/22 Chief Complaint: Fall, intractable R arm/shoulder pain. HPI Narrative The patient is a 67 y/o F w/ PMHx: GERD, HTN, BRYANNA not using her CPAP since her COVID illness, Hx SVT, Hx COVID-19, known Pulmonary nodule following with Dr. Blakely for serial imaging, known Ascending Aortic Aneurysm (recent incidental finding on CT, 4.2 cm AAA) following with Dr. Geller vascular surgeon who presents to the [facility] ED on 09/25/22 with history of mechanical fall unfortunately falling onto her right shoulder reportedly occurring at worship while she was walking on the steps and unfortunately tripped with no loss of consciousness with bystanders reporting that patient was alert the entire time and immediately talking following but unclear if she hit her head with complaints of some mild paresthesias in the right hand and ongoing significant pain in the right shoulder prompting ED evaluation. Patient notes pain currently more controlled following 0.5 mg IV x3 of Dilaudid and reports it currently is 3 of 10 in severity. Initially with occurrence and prior to pain meds was 10 out of 10, sharp, continuous aching and stabbing work-up in the ED included T97.9, heart rate 71, BP 121/73, respiratory rate 20, 98% on room air, CBC with a BC 11.9, hemoglobin 13, platelet 195 with left shift, CMP pending upon requested evaluation of patient, CT right upper extremity with a commuted, displaced, impacted and subluxed fracture of the humeral head and neck, plain film of the shoulder with an impacted fracture of the surgical neck of the proximal humerus with degenerative changes, CT of the brain with no acute intracranial findings. Given the severity of these findings local orthopedic surgery recommended the patient follow-up with an upper extremity specialist with likely future surgical intervention necessity with the ED discussion of patient with the [facility] transfer line specifically with discussions with Dr. Lentz the orthopedic surgeon on-call who recommended given that this not an emergent surgical case that patient may be admitted for local pain control and follow-up outpatient at their clinic; however, ED also spoke to Dr. Hancock and he noted intention to evaluate and help set up her follow-up evaluation at the [facility] with Dr. Sarah Archer. [facility]LY [facility] Medical History (Updated 09/25/22 @ 18:[address] Moon Cosme MD) Arthritis Ascending aortic aneurysm Constipation Decreased libido GERD (gastroesophageal reflux disease) Hypertension Lung nodule BRYANNA (obstructive sleep apnea) SVT (supraventricular tachycardia) Vaginal dryness Home Medications lisinopril 20 mg tablet 20 mg PO DAILY BLOOD PRESSURE 10/29/13 [History Last Taken 09/25/22] multivitamin 1 tab PO DAILY HEALTH MAINTENANCE 06/09/21 [History Last Taken 09/25/22] ascorbate calcium (vitamin C) 500 mg tablet 500 mg PO DAILY SUPPLEMENT 07/24/22 [History Last Taken 09/25/22] atorvastatin 20 mg tablet 20 mg PO QPM CHOLESTEROL 07/24/22 [History Last Taken 09/24/22 21:00] cholecalciferol (vitamin D3) 25 mcg (1,000 unit) capsule 25 mcg PO DAILY SUPPLEMENT 07/24/22 [History Last Taken 09/25/22] docusate sodium 100 mg capsule 100 mg PO DAILY CONSTIPATION 07/24/22 [History Last Taken Unknown] zinc gluconate 50 mg tablet 50 mg PO DAILY SUPPLEMENT 07/24/22 [History Last Taken 09/25/22] Allergy/AdvReac Type Severity Reaction Status Date / Time Penicillins Allergy Rash Verified 09/25/22 14:15 Sulfa (Sulfonamide Allergy Rash Verified 09/25/22 14:15 Antibiotics) Family History (Updated 09/25/22 @ 18:[address] Moon Cosme MD) Mother Diabetes Father BRYANNA (obstructive sleep apnea) Brother Heart disease Hypertension Myocardial infarction CAD (coronary artery disease) Surgical History H/O excision of mass History of bilateral carpal tunnel release History of breast lump/mass excision History of section History of hysterectomy History of right knee joint replacement Social History (Updated 09/25/22 @ 18:[address] Moon Cosme MD) household members: spouse Smoking Status: Never smoker alcohol intake: never substance use type: does not use ROS ROS Narrative Admission Review of Systems: CONSTITUTIONAL: No weight loss, fever, chills, + weakness or fatigue. HEENT: Eyes: No visual loss, blurred vision, double vision or yellow sclerae. Ears, Nose, Throat: No hearing loss, sneezing, congestion, runny nose or sore throat. SKIN: No rash or itching, lesions, wounds. CARDIOVASCULAR: No chest pain, chest pressure or chest discomfort, palpitations, edema, orthopnea, syncopal events. RESPIRATORY: No shortness of breath, cough or sputum, wheezing, hemoptysis. GASTROINTESTINAL: + anorexia, nausea, constipation, No vomiting, diarrhea, abdominal pain, melena, BRBPR. GENITOURINARY: No dysuria, frequency, urgency or retention. NEUROLOGICAL: No headache, dizziness, syncope, paralysis, ataxia, numbness or tingling in the extremities, focal weakness, change in bowel or bladder control, seizure. MUSCULOSKELETAL: + muscle, back pain, joint pain or stiffness. HEMATOLOGIC: No anemia, bleeding or bruising. LYMPHATICS: No enlarged nodes. No history of splenectomy. PSYCHIATRIC: No history of depression or anxiety. ENDOCRINOLOGIC: No reports of sweating, cold or heat intolerance. No polyuria or polydipsia. ALLERGIES: No history of asthma, hives, eczema or rhinitis. Vital Signs Vital Signs Vital Signs: 09/25/22 14:13 09/25/22 14:44 Temperature 97.9 F Temperature Source Temporal Pulse Rate 71 68 Respiratory Rate 20 H 18 Blood Pressure 121/73 H 128/71 H Blood Pressure Mean 89 90 Pulse Ox 98 96 Oxygen Delivery Method Nasal Cannula Room Air Weight Weight: 185 lb Body Mass Index (BMI) 33.8 Physical Exam Narrative Physical Examination: General: Awake, alert, oriented x 3 and cooperative, seated upright in the ED bed, uncomfortable appearing, reporting 3-4 out of 10 in severity right upper extremity pain. Skin: Normal color, normal turgor, no icterus, no cyanosis except for recent fall with expected abrasions, onset ecchymosis HEENT: AT/NC, EOMI, PERRLA, dry MM, no carotid bruits or JVD noted. Lungs: Mildly diminished, greater bases, poor effort, no rales, ronchi or wheezing. Heart: Regular rate and rhythm; no gallop, rub audible. Abdomen: Soft, obese, NTTP, ND, mildly hyperactive BS, no HSM. Extremities: No cyanosis, no clubbing, status post fall with right upper extremity significant edema, peripheral pulses intact and sensation intact, able to move fingers, currently in sling secondary to complicated humeral fracture Neurological: Patient awake, alert, oriented as noted, cognitive function intact; pupils equally reactive to light and accommodation, cranial nerves grossly normal, moving all 4 extremities except expected limitation right upper extremity given recent fall with right upper extremity fracture, some edema to the upper shoulder region, peripheral pulses intact and sensation intact, able to move fingers, any further movement limited secondary to severity of fracture with nonweightbearing status in place, strength accordingly moderately to severely global decreased. Psychiatric: Affect appears extremely uncomfortable, no acute evidence of depressive or anxiety feelings. Results Lab / Micro Data Result Diagrams: 09/25/22 17:15 09/25/22 17:15 Labs: Laboratory Results - last 24 hr 09/25/22 17:15: WBC 11.9 H, RBC 4.15 L, Hgb 13.0, Hct 38.8, MCV 93.5, MCH 31.3, MCHC 33.5, RDW Std Deviation 40.9, RDW Coeff of Sarah 11.9, Plt Count 196, MPV 11.5, Immature Gran % (Auto) 0.400, Neut % (Auto) 86.0 H, Lymph % (Auto) 8.2 L, [place] % (Auto) 5.0, Eos % (Auto) 0.2, Baso % (Auto) 0.2, Absolute Neuts (auto) 10.2 H, Absolute Lymphs (auto) 0.97, Nucleated RBC % [address] 09/25/22 14:26 IMPRESSION: Normal unenhanced CT scan of the brain. Electronically Signed: Solo Dale MD at 15:20 EST , Shoulder X-Ray 09/25/22 15:13 IMPRESSION: Impacted fracture of the surgical neck of the proximal humerus. Degenerative changes. Electronically Signed: Solo Dale MD at 15:24 EST , Upper Extremity CT 09/25/22 15:47 IMPRESSION: Comminuted, displaced, impacted and subluxed fracture of the humeral head and neck.. Electronically Signed: Rambo Delgado MD at 16:23 EST , Assessment & Plan Assessment/Plan (1) Closed fracture of proximal end of right humerus: PLAN: Plan The patient is a 67 y/o F w/ PMHx: GERD, HTN, BRYANNA, Hx SVT, Hx COVID-19, known Pulmonary nodule following with Dr. Blakely for serial imaging, known Ascending Aortic Aneurysm following with Dr. Geller vascular surgeon who presents to the [facility] ED on 09/25/22 with history of mechanical fall unfortunately falling onto her right shoulder reportedly occurring at worship while she was walking on the steps and unfortunately tripped with no loss of consciousness with bystanders reporting that patient was alert the entire time and immediately talking following but unclear if she hit her head with complaints of some mild paresthesias in the right hand and ongoing significant pain in the right shoulder prompting ED evaluation. #1. Mechanical fall with intractable pain with right comminuted, displaced, impacted and subluxed fracture of the humeral head and neck: We will admit to medical surgical floor, maintain on fall precautions, continue nonweightbearing status to right upper extremity, maintain in the sling, continue icing, will continue consultation with Dr. Gaines orthopedic surgery who will evaluate the patient and assist in her follow-up care with the right upper extremity specialist at the [facility] Dr. Sarah Archer given the severity of the right upper extremity fracture, as needed oral and IV pain regimen with adjustments as needed pending response, bowel regimen. #2. Known pulmonary nodules: Patient with insulin previously noted 3 subcentimeter pulmonary nodules the largest measuring 8 mm in size in the right middle lobe, following with Dr. Blakely with most recent visit 07/24/2022 with planned repeat chest imaging at the end of September beginning of October which pulmonary will follow-up on and if it remains unchanged in size noted plan for repeat imaging in 18 to 24 months. #3. Known ascending aortic aneurysm: CT previously with incidental finding of a 4.2 cm AAA, following with Dr. Geller, recent evaluation with continued monitoring, last visit noted 07/31/2020. #4. History reported prior SVT: Patient is not on any beta-jaelyn nor Cardizem therapy, no recent history, encourage continued outpatient follow-up with cardiology #5. Hypertension: Continue home regimen including lisinopril, PRN hydralazine. #6. Hyperlipidemia: We will continue patient on statin therapy. #7. GERD: We will have as needed Mylanta as needed for dyspepsia type symptoms. #8. BRYANNA: Patient has not actively been using her CPAP since she had COVID, amenable to trial however she is a little bit reticent and notes that she may decline and preference of oxygen supplementation instead. Encouraged that she reestablish usage of her CPAP machine. #9. DVT prophylaxis: SCDs, Lovenox. Admission Evaluation Time spent evaluating chart, patient history, patient evaluation, care planning and discussion with specialists: 55 minutes. Charges/Coding Visit Charges Inpatient E&M: 21566 Init Hosp L2
[2022-09-25 18:05] LABS: ALB/GLOB Ratio 1.2 RATIO (0.9-2.4); AST(SGOT) 12 U/L (15-37); Alanine Aminotransfer ALT/SGPT 14 U/L (13-56); Albumin, Serum 3.7 g/dL (3.2-5.0); Alkaline Phosphatase 61 U/L (45-117); Anion Gap 8 (5-15); BUN 13 mg/dL (7-18); BUN/Creat Ratio 16.2 RATIO (10-20); Calcium,Total 9.1 mg/dL (8.5-10.1); Chloride 107 mmol/L (98-107); EST Glomerular Filtration Rate 76 mL/min (>60); Est Glom Filt Rate - Afr Amer 92 mL/min (>60); Estimated Creatinine Clearance 55.45 ml/min; Glucose 179 mg/dL (74-106); Potassium 3.9 mmol/L (3.5-5.1); Protein, Total 6.7 g/dL (6.4-8.2); Sodium Level 142 mmol/L (136-145)
[2022-09-25 18:27] VITALS: BP 152/67; PULSE 74; RESP 14; TEMP 36.8; O2SAT 96
[2022-09-25 20:18] VITALS: BMI 35.9
[2022-09-25 20:24] VITALS: BP 140/72; PULSE 70; RESP 16; TEMP 36.6; O2SAT 100
[2022-09-25 21:25] VITALS: O2SAT 91
[2022-09-25] MEDS: Atorvastatin Calcium 20 MG Tablet PO (21:47)
[2022-09-25] MEDS: Acetaminophen 325 MG Tablet 650 MG PO (21:48)
[2022-09-25] MEDS: oxyCODONE 5 MG Tablet PO (21:48)
[2022-09-26] MEDS: oxyCODONE 5 MG Tablet PO ×2 (04:01→16:13)
[2022-09-26] MEDS: Acetaminophen 325 MG Tablet 650 MG PO ×2 (04:02→09:26)
[2022-09-26 08:00] VITALS: BP 103/67; PULSE 70; RESP 16; TEMP 36.7
--- NOTE | 2022-09-26 08:06 | CON.PCM_ITS ---
Assessment & Plan Assessment/Plan (1) Closed fracture of proximal end of right humerus: PLAN: Plan Patient has a comminuted proximal humeral head and neck fracture that is displaced and impacted. After reviewing CT scan I do not believe this is amenable to ORIF and she would benefit from a shoulder arthroplasty procedure. I did discuss this with the patient and will provide her with names and numbers of surgeons who can perform this. I will have that informaiton faxed to the 3rd floor nursing station. HPI Consult Data Date of Consult: 09/26/22 HPI Narrative Reason for Consultation: Right proximal humerus fracture HPI Narrative: ROMAIN DOMINGO, is a 67 F who presents after ground-level fall [place] directly onto the right shoulder. She is right-hand dominant. She was admitted to the hospital for pain control. Denies any other injury. Denies prior shoulder problems. Denies numbness or tingling. pain controlled now. FORMERLY [facility] Medical History (Updated 09/25/22 @ 20:34 by Hilary Harrell) AAA (abdominal aortic aneurysm) Arthritis Ascending aortic aneurysm Constipation CPAP (continuous positive airway pressure) dependence Decreased libido GERD (gastroesophageal reflux disease) Hypertension Irregular heart beat Lung nodule BRYANNA (obstructive sleep apnea) Osteoporosis SVT (supraventricular tachycardia) Vaginal dryness Home Medications lisinopril 20 mg tablet 20 mg PO DAILY BLOOD PRESSURE 10/29/13 [History Last Taken 09/25/22] multivitamin 1 tab PO DAILY HEALTH MAINTENANCE 06/09/21 [History Last Taken 03/10] ascorbate calcium (vitamin C) 500 mg tablet 500 mg PO DAILY SUPPLEMENT 07/24/22 [History Last Taken 09/25/22] atorvastatin 20 mg tablet 20 mg PO QPM CHOLESTEROL 07/24/22 [History Last Taken 09/24/22 21:00] cholecalciferol (vitamin D3) 25 mcg (1,000 unit) capsule 25 mcg PO DAILY SUPPLEMENT 07/24/22 [History Last Taken 09/25/22] docusate sodium 100 mg capsule 100 mg PO DAILY CONSTIPATION 07/24/22 [History Last Taken Unknown] zinc gluconate 50 mg tablet 50 mg PO DAILY SUPPLEMENT 07/24/22 [History Last Taken 09/25/22] Allergy/AdvReac Type Severity Reaction Status Date / Time Penicillins Allergy Rash Verified 09/25/22 14:15 Sulfa (Sulfonamide Allergy Rash Verified 09/25/22 14:15 Antibiotics) Family History (Updated 09/25/22 @ 18:[address] Moon Cosme MD) Mother Diabetes Father BRYANNA (obstructive sleep apnea) Brother Heart disease Hypertension Myocardial infarction CAD (coronary artery disease) Surgical History H/O excision of mass History of bilateral carpal tunnel release History of breast lump/mass excision History of section History of hysterectomy History of right knee joint replacement Social History (Updated 09/25/22 @ 18:[address] Moon Cosme MD) household members: spouse Smoking Status: Never smoker alcohol intake: never substance use type: does not use Physical Exam Const alert, oriented x3 and no apparent distress Extremity Extremity Narrative: Right shoulder is swollen but there is no open wounds no ecchymosis compartments are soft in her arm and forearm. She is in a sling she is neurovascular intact she has intact sensation over the deltoid as well as all upper extremity dermatomes radial median ulnar nerve intact she does have degenerative changes of her fingers that are chronic 2 out of 4 radial pulse. Lab / Micro Data Result Diagrams: 09/25/22 17:15 09/25/22 17:15 Labs: Laboratory Results - last 24 hr 09/25/22 17:15: WBC 11.9 H, RBC 4.15 L, Hgb 13.0, Hct 38.8, MCV 93.5, MCH 31.3, MCHC 33.5, RDW Std Deviation 40.9, RDW Coeff of Sarah 11.9, Plt Count 196, MPV 11.5, Immature Gran % (Auto) 0.400, Neut % (Auto) 86.0 H, Lymph % (Auto) 8.2 L, [place] % (Auto) 5.0, Eos % (Auto) 0.2, Baso % (Auto) 0.2, Absolute Neuts (auto) 10.2 H, Absolute Lymphs (auto) 0.97, Nucleated RBC % 0 09/25/22 17:15: Sodium 142, Potassium 3.9, Chloride 107, Carbon Dioxide 27.0, Anion Gap 8, BUN 13, Creatinine 0.80, Estim Creat Clear Calc 55.45, Est GFR (MDRD) Af Amer 92, Est GFR (MDRD) Non-Af 76, BUN/Creatinine Ratio 16.2, Glucose 179 H, Calcium 9.1, Total Bilirubin 0.50, AST 12 L, ALT 14, Alkaline Phosphatase 61, Total Protein 6.7, Albumin 3.7, Globulin 3.0, Albumin/Globulin Ratio 1.2 Micro: Microbiology 09/25/22 17:10 Nasal Secretion SARS-CoV-2 Antigen (Rapid) - Final Radiology Impression Brain CT 09/25/22 14:26 IMPRESSION: Normal unenhanced CT scan of the brain. Electronically Signed: Solo Dale MD at 15:20 EST , Shoulder X-Ray 09/25/22 15:13 IMPRESSION: Impacted fracture of the surgical neck of the proximal humerus. Degenerative changes. Electronically Signed: Solo Dale MD at 15:24 EST , Upper Extremity CT 09/25/22 15:47 IMPRESSION: Comminuted, displaced, impacted and subluxed fracture of the humeral head and neck.. Electronically Signed: Rambo Delgado MD at 16:23 EST ,
[2022-09-26] MEDS: Enoxaparin 40 MG/0.4 ML Syringe SC (09:33)
[2022-09-26 10:30] VITALS: O2SAT 94
--- NOTE | 2022-09-26 14:41 | DS.PCM_ITS ---
Providers Date of Admission: 09/25/22 Date of Discharge: 09/26/22 Primary Care Physician: Dr. Chuck Goldstein MD Consultations 09/25/22 20:37 Consult: Orthopedics Routine Consulting Provider: Tim Hancock Reason for Consult: Fall, R humeral head fracture EMERGENT Consult: No MD Notified: Yes Date Notified: 09/25/22 Time Notified: 17:56 Method of Notification: Text Reason For Visit: FALL, R HUMERAL HEAD FX Diagnosis Discharge Diagnosis (1) Closed fracture of proximal end of right humerus: Status: Acute Code(s): S42.201A - Unspecified fracture of upper end of right humerus, initial encounter for closed fracture Medications at Discharge Home Medications lisinopril 20 mg tablet 20 mg PO DAILY BLOOD PRESSURE 10/29/13 multivitamin 1 tab PO DAILY HEALTH MAINTENANCE 06/09/21 ascorbate calcium (vitamin C) 500 mg tablet 500 mg PO DAILY SUPPLEMENT 07/24/22 atorvastatin 20 mg tablet 20 mg PO QPM CHOLESTEROL 07/24/22 cholecalciferol (vitamin D3) 25 mcg (1,000 unit) capsule 25 mcg PO DAILY SUPPLEMENT 07/24/22 docusate sodium 100 mg capsule 100 mg PO DAILY CONSTIPATION 07/24/22 zinc gluconate 50 mg tablet 50 mg PO DAILY SUPPLEMENT 07/24/22 acetaminophen 500 mg capsule 1,000 mg PO Q8H #30 caps 09/26/22 oxycodone 5 mg tablet 5 mg PO Q4H PRN PRN Pain Score 4-10 5 days #30 tabs 09/26/22 Hospital Course Procedures - (Shoulder x-rays/brain CT/right upper extremity CT) Summary of Care Provided Minutes Spent on Discharge: 33 Hospital Course: Mrs. Espinosa is a 67-year-old white female who presented to the emergency department after a fall. She was suffering from intractable right shoulder and arm pain after her fall. She was walking up steps at [employer] and unfortunately tripped. She had no loss of consciousness and was complaining of significant pain in the right shoulder so she was brought to the emergency department. Vital signs were unremarkable on presentation. Labs were overall unremarkable. CT of the right upper extremity demonstrated a comminuted, displaced, impacted and subluxed fracture of the right humeral head and neck. Plain film shows the fracture was impacted. CT of the brain was unremarkable. Unfortunately the patient was experiencing intense pain and required admission for pain control. Orthopedic surgery was consulted to evaluate and help set up follow-up. Dr. Amaya saw her on 09/26/2021 and felt that the fracture was not amenable to an ORIF and she would benefit from a shoulder arthroplasty. He provided her with several physician options and this information was given to her. She is going to call and make a follow-up appointment to be seen hopefully at by the end of the week. Her pain was well controlled with Tylenol and as needed narcotics. The patient does have issues with constipation. I did advise her to use her MiraLAX which she has since stopped, on the days that she utilizes narcotics, to stay hydrated and to continue her docusate. We did supply her with a short course of oxycodone 5 mg every 6 hours for 5 days. She was placed in a sling and instructed in intermittent icing and continued immobility and was discharged home in stable condition on 09/26/2022. Discharge diagnoses: Closed fracture of the proximal right humerus secondary to mechanical fall Uncontrolled pain-resolved Mechanical fall History of pulmonary nodules History of a sending aortic aneurysm-follows with outpatient vascular surgery History of SVT Hypertension Hyperlipidemia GERD BRYANNA Physical Exam Const alert, oriented x3 and no apparent distress Constitutional Narrative: Very pleasant, upper middle-aged, white female, sitting up in bed, appears comfortable at this time, nursing at bedside General Appearance: cooperative, comfortable, well kempt and well developed Orientation / Consciousness: awake, oriented to person, oriented to place and oriented to time Exam Limitations: no limitations HEENT normocephalic, hearing grossly normal bilaterally and moist oral mucous membranes HEENT Narrative: Ecchymosis under right eye with bandage in place, no signs of bleeding Resp normal respiratory effort, no retractions, no use of accessory muscles and clear to auscultation bilaterally Cardio regular rate, regular rhythm, S1 normal heart sound, S2 normal heart sound, no murmurs, no rub, no gallops and no clicks GI normal to inspection, nondistended, normoactive bowel sounds, soft to palpation and non-tender Extremity no clubbing, cyanosis or edema Extremity Narrative: 2+ pedal pulses Neuro oriented x3, no focal motor deficits and no sensory deficits noted Neuro Narrative: Unable to move right upper extremity secondary to shoulder fracture all other extremities are symmetrical in the movement Speech: speech normal Psych Psych Narrative: Pleasant but very anxious Mood & Affect: anxious Weight / BMI Weight Weight: 22.9 kg Body Mass Index (BMI) 35.9 ABG / Lab / Microbiology Data Result Diagrams: 09/25/22 17:15 09/25/22 17:15 Laboratory: Laboratory Results - last 24 hr 09/25/22 17:15: WBC 11.9 H, RBC 4.15 L, Hgb 13.0, Hct 38.8, MCV 93.5, MCH 31.3, MCHC 33.5, RDW Std Deviation 40.9, RDW Coeff of Sarah 11.9, Plt Count 196, MPV 11.5, Immature Gran % (Auto) 0.400, Neut % (Auto) 86.0 H, Lymph % (Auto) 8.2 L, Keith % (Auto) 5.0, Eos % (Auto) 0.2, Baso % (Auto) 0.2, Absolute Neuts (auto) 10.2 H, Absolute Lymphs (auto) 0.97, Nucleated RBC % 0 09/25/22 17:15: Sodium 142, Potassium 3.9, Chloride 107, Carbon Dioxide 27.0, Anion Gap 8, BUN 13, Creatinine 0.80, Estim Creat Clear Calc 55.45, Est GFR (MDRD) Af Amer 92, Est GFR (MDRD) Non-Af 76, BUN/Creatinine Ratio 16.2, Glucose 179 H, Calcium 9.1, Total Bilirubin 0.50, AST 12 L, ALT 14, Alkaline Phosphatase 61, Total Protein 6.7, Albumin 3.7, Globulin 3.0, Albumin/Globulin Ratio 1.2 Microbiology: Microbiology 09/25/22 17:10 Nasal Secretion SARS-CoV-2 Antigen (Rapid) - Final Radiography Diagnostic Testing: Radiology Impression Brain CT 09/25/22 14:26 IMPRESSION: Normal unenhanced CT scan of the brain. Electronically Signed: Solo Dale MD at 15:20 EST , Shoulder X-Ray 09/25/22 15:13 IMPRESSION: Impacted fracture of the surgical neck of the proximal humerus. Degenerative changes. Electronically Signed: Solo Dale MD at 15:24 EST , Upper Extremity CT 09/25/22 15:47 IMPRESSION: Comminuted, displaced, impacted and subluxed fracture of the humeral head and neck.. Electronically Signed: Rambo Delgado MD at 16:23 EST , D/C Instructions Discharge Diet: Low fat / Low cholesterol Discharge Activity: May Not Drive Meaningful Use Info Meaningful Use Diagnoses (Choose all that apply): None applicable Discharge Plan Admission Admit Date/Time: 09/25/22 17:55 Primary Reason for Your Visit: Muted, displaced, impacted, and subluxed fracture of the humeral head/neck Attending Provider: Oralia Kuhn Primary Care Provider: Chuck Goldstein Consulting Providers: Tim Hancock ; Moon Cosme Instructions Additional Instructions / Restrictions: 1. Please follow-up with the orthopedics surgeon of your choice as soon as possible to be evaluated 2. Be sure to drink plenty of water and take MiraLAX as needed on the days that you utilize narcotics Discharge Orders/Prescriptions Prescriptions: New oxycodone 5 mg Tablet 5 mg PO Q4H PRN PRN (Reason: Pain Score 4-10) 5 Days Qty: 30 0RF acetaminophen 500 mg capsule 1,000 mg PO Q8H Qty: 30 0RF Continued ascorbate calcium (vitamin C) 500 mg tablet 500 mg PO DAILY atorvastatin 20 mg tablet 20 mg PO QPM cholecalciferol (vitamin D3) 25 mcg (1,000 unit) capsule 25 mcg PO DAILY docusate sodium 100 mg capsule 100 mg PO DAILY zinc gluconate 50 mg tablet 50 mg PO DAILY lisinopril 20 MG tablet 20 mg PO DAILY multivitamin Tablet 1 tab PO DAILY Referrals / Follow Up: Chuck Goldstein MD [Primary Care Provider] - Within 1 Month Disposition Disposition (needs filled in before D/C Order can be placed): Home, Self Care Charges/Coding Visit Charges Inpatient E&M: 37949 Disch Hosp
--- NOTE | 2022-09-26 15:00 | CASEMGMT ---
Addendum entered by Saroj Jules 09/26/22 18:10: 2/8: 1630. Per RNMandy, pt interested in script for shannon-walker and family plans to look into getting it from local DME co. Script prepared and given to Mandy, who states will get signature from Dr Kuhn and give to pt. Original Note: RN JO-ANN NOTE: RN CM to room. Pt resting in bed. Family @ bedside. , Kilo, states they have an appt w/Dr Sarah Macedo, ortho @ [facility] on Sat @ 11 AM for initial consult. states he is available to assist pt some initially when she returns home, but he is going to [place] tomorrow. Pt's [id number] will then come to help pt/stay w/her. Pt has arm sling in place. Pt requests med from [facility] retail pharmacy be delivered to her room. Call to pharmacy and they were notified. Pt and family deny having any discharge planning needs. Arnold CHAVEZ RN CM
[2022-09-26 15:07] VITALS: BP 138/80; PULSE 84; RESP 16; TEMP 37.1
[2022-09-26 16:17] VITALS: BP 127/75; PULSE 78; RESP 18; TEMP 37.2; O2SAT 98
[2022-09-26 16:20] LABS: Absolute Lymphocyte Count 1.65 X10^3/uL (0.83-4.51); Absolute Neutrophil Count 4.5 X10^3/uL (2.0-7.7); Basophil# 0.01 X10^3/uL; Basophil% 0.1 % (0-1); Eosinophil# 0.02 X10^3/uL; Eosinophils% 0.3 % (0-5); Hematocrit 36.3 % (37-47); Hemoglobin 12.2 g/dL (12.0-15.0); Lymphocyte # 1.65 X10^3/ul (0.83-4.51); Lymphocyte % 24.1 % (19-41); Mean Corp Hgb Conc 33.6 g/dL (32-36); Mean Corpuscular Hgb 31.4 pg (27.0-32.0); Mean Corpuscular Volume 93.6 fL (81-99); Mean Platelet Vol. 11.9 fl (6.2-12.0); Monocyte# 0.66 X10^3/uL; Monocyte% 9.6 % (0-10); NRBC Flagged by Analyzer 0 % (0-5); Neutrophil # 4.51 X10^3/uL (2.7-7.7); Neutrophil % 65.8 % (47-70); Platelet Count 188 K/mm3 (150-450); RBC Distribution Width CV 12.3 % (11.6-14.6); RBC Distribution Width SD 41.9 fl (35.1-43.9); Red Blood Count 3.88 M/mm3 (4.2-5.4); White Blood Count 6.9 K/mm3 (4.4-11.0)
[2022-09-26 16:49] LABS: AST(SGOT) 13 U/L (15-37); Alanine Aminotransfer ALT/SGPT 12 U/L (13-56); Albumin, Serum 3.3 g/dL (3.2-5.0); Alkaline Phosphatase 62 U/L (45-117); Anion Gap 4 (5-15); BUN 11 mg/dL (7-18); BUN/Creat Ratio 13.9 RATIO (10-20); Calcium,Total 9.4 mg/dL (8.5-10.1); Chloride 111 mmol/L (98-107); Creatinine, Serum 0.79 mg/dL (0.55-1.02); EST Glomerular Filtration Rate 78 mL/min (>60); Est Glom Filt Rate - Afr Amer 94 mL/min (>60); Estimated Creatinine Clearance 56.15 ml/min; Globulin 3.3 g/dL (2.2-4.2); Glucose 132 mg/dL (74-106); Potassium 3.8 mmol/L (3.5-5.1); Protein, Total 6.6 g/dL (6.4-8.2); Sodium Level 143 mmol/L (136-145)
== END 2022-09-26 17:25 | disposition home or self-care (01) ==
LOC: ED 17:38 → MS3 19:20
PROVIDERS: Admitting Provider Family Medicine; Emergency Provider Emergency Medicine; PCP Family Medicine; Visit Provider Internal Medicine
DX: S42.211A Unspecified displaced fracture of surgical neck of right humerus, initial encounter for closed fracture (principal); I71.40 Abdominal aortic aneurysm, without rupture, unspecified; I47.1 Supraventricular tachycardia; G47.33 Obstructive sleep apnea (adult) (pediatric); K21.9 Gastro-esophageal reflux disease without esophagitis; E78.5 Hyperlipidemia, unspecified; I10 Essential (primary) hypertension; Z86.16 Personal history of COVID-19; W10.9XXA Fall (on) (from) unspecified stairs and steps, initial encounter; M19.90 Unspecified osteoarthritis, unspecified site; Z79.899 Other long term (current) drug therapy; Y93.01 Activity, walking, marching and hiking; Y92.22 Religious institution as the place of occurrence of the external cause; R91.8 Other nonspecific abnormal finding of lung field
CPT/HCPCS: 36415; 70450; 73030; 73200; 80053; 85025; 87811; 94668; 96372; 96374; 96375; 96376; 99221; 99252; 99285; J7030; A4216; G0378; G0463; J2405

== ENCOUNTER 2024-07-07 19:45 | Inpatient (IN) | payer MEDICARE, SELFPAY ==
[2024-07-07 20:37] VITALS: BP 118/70; PULSE 89; RESP 16; TEMP 36.7; O2SAT 98; BMI 38.9
[2024-07-07] MEDS: Acetaminophen 500 MG Tablet 1000 MG PO (21:52)
[2024-07-07] MEDS: Latanoprost 0.005% 1 Bottle 1 DRP EACH EYE (21:52)
[2024-07-07] MEDS: Aspirin E.C. 81 MG Tablet PO (21:53)
[2024-07-07] MEDS: Atorvastatin Calcium 20 MG Tablet PO (21:53)
[2024-07-07 22:04] VITALS: PULSE 90; RESP 15
[2024-07-08] MEDS: Pantoprazole Sodium 40 MG Tablet PO (05:14)
[2024-07-08] MEDS: Acetaminophen 500 MG Tablet 1000 MG PO ×3 (05:14→21:48)
[2024-07-08 05:50] LABS: Absolute Lymphocyte Count 1.52 X10^3/uL (0.83-4.51); Absolute Neutrophil Count 4.9 X10^3/uL (2.0-7.7); Basophil# 0.03 X10^3/uL; Basophil% 0.4 % (0-1); Eosinophil# 0.36 X10^3/uL; Eosinophils% 4.7 % (0-5); Hematocrit 33.3 % (37-47); Lymphocyte # 1.52 X10^3/ul (0.83-4.51); Lymphocyte % 20.1 % (19-41); Mean Corpuscular Hgb 31.1 pg (27.0-32.0); Mean Corpuscular Volume 94.1 fL (81-99); Mean Platelet Vol. 11.4 fl (6.2-12.0); Monocyte# 0.78 X10^3/uL; Monocyte% 10.3 % (0-10); NRBC Flagged by Analyzer 0 % (0-5); Neutrophil # 4.85 X10^3/uL (2.7-7.7); Platelet Count 186 K/mm3 (150-450); RBC Distribution Width CV 12.4 % (11.6-14.6); RBC Distribution Width SD 42.7 fl (35.1-43.9); Red Blood Count 3.54 M/mm3 (4.2-5.4); White Blood Count 7.6 K/mm3 (4.4-11.0)
[2024-07-08 06:08] LABS: Anion Gap 4 (5-15); BUN 13 mg/dL (7-18); BUN/Creat Ratio 17.1 RATIO (10-20); Calcium,Total 9.2 mg/dL (8.5-10.1); Chloride 105 mmol/L (98-107); Creatinine, Serum 0.76 mg/dL (0.55-1.02); EST Glomerular Filtration Rate 81 mL/min (>60); Est Glom Filt Rate - Afr Amer 98 mL/min (>60); Estimated Creatinine Clearance 73.96 ml/min; Glucose 109 mg/dL (74-106); Sodium Level 138 mmol/L (136-145)
[2024-07-08 08:52] VITALS: BP 115/72; PULSE 80; TEMP 36.6; O2SAT 96
[2024-07-08] MEDS: Aspirin E.C. 81 MG Tablet PO ×2 (08:58→17:00)
[2024-07-08] MEDS: Ascorbic Acid 500 MG Tablet PO (08:58)
[2024-07-08] MEDS: hydroCHLOROthiazide 12.5mg 12.5 MG PO (08:58)
[2024-07-08] MEDS: Multivitamins,Therapeutic Tablet 1 TABLET PO (08:58)
[2024-07-08] MEDS: Cholecalciferol (VIT D3) 25 MCG TABLET (1,000 UNITS) PO (08:58)
[2024-07-08] MEDS: Polyethylene Glycol 3350 17 GM PACKET PO (08:59)
[2024-07-08] MEDS: Senna/Docusate Sodium 1 Tablet 2 TABLET PO ×2 (08:59→21:48)
[2024-07-08] MEDS: Tuberculin,Purif.prot.deriv. 50 TU/ML Vial 0.1 ML ID (09:00)
[2024-07-08] MEDS: Lisinopril 20 MG Tablet PO (09:01)
[2024-07-08] MEDS: Latanoprost 0.005% 1 Bottle 1 DRP EACH EYE (21:40)
[2024-07-08] MEDS: Atorvastatin Calcium 20 MG Tablet PO (21:51)
[2024-07-09] MEDS: oxyCODONE 5 MG Tablet PO (04:52)
[2024-07-09] MEDS: Acetaminophen 500 MG Tablet 1000 MG PO ×3 (04:52→22:39)
[2024-07-09] MEDS: Pantoprazole Sodium 40 MG Tablet PO (04:53)
[2024-07-09 07:14] LABS: Cholesterol 124 mg/dL (200); High Density Lipoprotein 54 mg/dL; Magnesium 2.1 mg/dL (1.6-2.6); Triglycerides 76 mg/dL; Very Low Density Lipoprotein 15 mg/dL (5-40)
[2024-07-09 08:26] VITALS: BP 108/74; PULSE 97; TEMP 37.3; O2SAT 94
[2024-07-09 08:27] LABS: Vitamin D,25 Hydroxy 33.8 ng/mL
[2024-07-09] MEDS: Polyethylene Glycol 3350 17 GM PACKET PO (08:30)
[2024-07-09] MEDS: Multivitamins,Therapeutic Tablet 1 TABLET PO (08:30)
[2024-07-09] MEDS: Aspirin E.C. 81 MG Tablet PO ×2 (08:30→16:39)
[2024-07-09] MEDS: Ascorbic Acid 500 MG Tablet PO (08:30)
[2024-07-09] MEDS: hydroCHLOROthiazide 12.5mg 12.5 MG PO (08:30)
[2024-07-09] MEDS: Cholecalciferol (VIT D3) 25 MCG TABLET (1,000 UNITS) PO (08:30)
[2024-07-09] MEDS: Senna/Docusate Sodium 1 Tablet 2 TABLET PO ×2 (08:31→22:39)
[2024-07-09] MEDS: Lisinopril 20 MG Tablet PO (08:31)
[2024-07-09] MEDS: Atorvastatin Calcium 20 MG Tablet PO (22:40)
[2024-07-09] MEDS: Latanoprost 0.005% 1 Bottle 1 DRP EACH EYE (22:40)
[2024-07-10] MEDS: Acetaminophen 500 MG Tablet 1000 MG PO ×3 (06:43→21:52)
[2024-07-10] MEDS: Pantoprazole Sodium 40 MG Tablet PO (06:43)
[2024-07-10 08:45] VITALS: BP 96/60; PULSE 95; RESP 17; TEMP 36.6; O2SAT 96
[2024-07-10] MEDS: Multivitamins,Therapeutic Tablet 1 TABLET PO (08:49)
[2024-07-10] MEDS: Aspirin E.C. 81 MG Tablet PO ×2 (08:49→17:33)
[2024-07-10] MEDS: Polyethylene Glycol 3350 17 GM PACKET PO (08:50)
[2024-07-10] MEDS: Ascorbic Acid 500 MG Tablet PO (08:50)
[2024-07-10] MEDS: Cholecalciferol (VIT D3) 25 MCG TABLET (1,000 UNITS) PO (08:50)
[2024-07-10] MEDS: Senna/Docusate Sodium 1 Tablet 2 TABLET PO ×2 (08:50→21:52)
[2024-07-10 11:05] VITALS: BP 112/61
[2024-07-10] MEDS: hydroCHLOROthiazide 12.5mg 12.5 MG PO (11:09)
[2024-07-10] MEDS: Lisinopril 20 MG Tablet PO (11:09)
[2024-07-10] MEDS: Atorvastatin Calcium 20 MG Tablet PO (21:51)
[2024-07-10] MEDS: Latanoprost 0.005% 1 Bottle 1 DRP EACH EYE (21:52)
[2024-07-11] MEDS: Pantoprazole Sodium 40 MG Tablet PO (06:05)
[2024-07-11] MEDS: Acetaminophen 500 MG Tablet 1000 MG PO ×3 (06:05→21:53)
[2024-07-11 08:56] VITALS: BP 135/82; PULSE 71; RESP 18; TEMP 36.7; O2SAT 97
[2024-07-11] MEDS: Senna/Docusate Sodium 1 Tablet 2 TABLET PO ×2 (08:57→21:52)
[2024-07-11] MEDS: Lisinopril 20 MG Tablet PO (08:58)
[2024-07-11] MEDS: Aspirin E.C. 81 MG Tablet PO ×2 (08:58→18:48)
[2024-07-11] MEDS: Multivitamins,Therapeutic Tablet 1 TABLET PO (08:58)
[2024-07-11] MEDS: Cholecalciferol (VIT D3) 25 MCG TABLET (1,000 UNITS) PO (08:59)
[2024-07-11] MEDS: hydroCHLOROthiazide 12.5mg 12.5 MG PO (08:59)
[2024-07-11] MEDS: Ascorbic Acid 500 MG Tablet PO (08:59)
[2024-07-11] MEDS: Polyethylene Glycol 3350 17 GM PACKET PO (08:59)
[2024-07-11] MEDS: Latanoprost 0.005% 1 Bottle 1 DRP EACH EYE (21:52)
[2024-07-11] MEDS: Atorvastatin Calcium 20 MG Tablet PO (21:52)
[2024-07-11] MEDS: Nystatin Powder 15gm Bottle 1 APPLIC TOPICAL (22:00)
[2024-07-12] MEDS: Pantoprazole Sodium 40 MG Tablet PO (05:43)
[2024-07-12] MEDS: Acetaminophen 500 MG Tablet 1000 MG PO ×3 (05:43→20:42)
[2024-07-12] MEDS: hydroCHLOROthiazide 12.5mg 12.5 MG PO (08:19)
[2024-07-12] MEDS: Aspirin E.C. 81 MG Tablet PO ×2 (08:19→17:25)
[2024-07-12] MEDS: Ascorbic Acid 500 MG Tablet PO (08:19)
[2024-07-12] MEDS: Senna/Docusate Sodium 1 Tablet 2 TABLET PO ×2 (08:19→20:42)
[2024-07-12] MEDS: Multivitamins,Therapeutic Tablet 1 TABLET PO (08:20)
[2024-07-12] MEDS: Polyethylene Glycol 3350 17 GM PACKET PO (08:20)
[2024-07-12] MEDS: Lisinopril 20 MG Tablet PO (08:20)
[2024-07-12] MEDS: Cholecalciferol (VIT D3) 25 MCG TABLET (1,000 UNITS) PO (10:08)
[2024-07-12] MEDS: Nystatin Powder 15gm Bottle 1 APPLIC TOPICAL ×2 (10:09→20:43)
[2024-07-12 15:42] VITALS: BP 126/72; PULSE 70; RESP 18; TEMP 36.8; O2SAT 96
[2024-07-12] MEDS: Atorvastatin Calcium 20 MG Tablet PO (20:42)
[2024-07-12] MEDS: Latanoprost 0.005% 1 Bottle 1 DRP EACH EYE (20:42)
[2024-07-13] MEDS: Pantoprazole Sodium 40 MG Tablet PO (06:03)
[2024-07-13] MEDS: Acetaminophen 500 MG Tablet 1000 MG PO ×3 (06:03→22:03)
[2024-07-13] MEDS: Polyethylene Glycol 3350 17 GM PACKET PO (08:11)
[2024-07-13] MEDS: Multivitamins,Therapeutic Tablet 1 TABLET PO (08:11)
[2024-07-13] MEDS: Aspirin E.C. 81 MG Tablet PO ×2 (08:11→17:27)
[2024-07-13] MEDS: hydroCHLOROthiazide 12.5mg 12.5 MG PO (08:11)
[2024-07-13] MEDS: Cholecalciferol (VIT D3) 25 MCG TABLET (1,000 UNITS) PO (08:11)
[2024-07-13] MEDS: Senna/Docusate Sodium 1 Tablet 2 TABLET PO ×2 (08:11→22:04)
[2024-07-13] MEDS: Lisinopril 20 MG Tablet PO (08:11)
[2024-07-13] MEDS: Ascorbic Acid 500 MG Tablet PO (08:12)
[2024-07-13] MEDS: Nystatin Powder 15gm Bottle 1 APPLIC TOPICAL ×2 (08:17→22:04)
[2024-07-13 08:18] VITALS: BP 116/73; PULSE 74
[2024-07-13 13:57] VITALS: BP 102/63; PULSE 85; RESP 16; TEMP 36.8; O2SAT 98
[2024-07-13] MEDS: Atorvastatin Calcium 20 MG Tablet PO (22:03)
[2024-07-13] MEDS: Latanoprost 0.005% 1 Bottle 1 DRP EACH EYE (22:04)
[2024-07-14] MEDS: Pantoprazole Sodium 40 MG Tablet PO (05:46)
[2024-07-14] MEDS: Acetaminophen 500 MG Tablet 1000 MG PO ×3 (05:46→20:31)
[2024-07-14 09:38] VITALS: BP 113/62; PULSE 87; RESP 16; TEMP 36.6; O2SAT 98
[2024-07-14] MEDS: Cholecalciferol (VIT D3) 25 MCG TABLET (1,000 UNITS) PO (09:42)
[2024-07-14] MEDS: Aspirin E.C. 81 MG Tablet PO ×2 (09:42→16:48)
[2024-07-14] MEDS: Lisinopril 20 MG Tablet PO (09:42)
[2024-07-14] MEDS: Senna/Docusate Sodium 1 Tablet 2 TABLET PO ×2 (09:42→20:33)
[2024-07-14] MEDS: Ascorbic Acid 500 MG Tablet PO (09:42)
[2024-07-14] MEDS: Multivitamins,Therapeutic Tablet 1 TABLET PO (09:42)
[2024-07-14] MEDS: hydroCHLOROthiazide 12.5mg 12.5 MG PO (09:42)
[2024-07-14] MEDS: Polyethylene Glycol 3350 17 GM PACKET PO (09:43)
[2024-07-14] MEDS: Nystatin Powder 15gm Bottle 1 APPLIC TOPICAL ×2 (09:47→20:33)
[2024-07-14 19:01] VITALS: BMI 38.6
[2024-07-14 20:30] VITALS: RESP 15
[2024-07-14] MEDS: Latanoprost 0.005% 1 Bottle 1 DRP EACH EYE (20:31)
[2024-07-14] MEDS: Atorvastatin Calcium 20 MG Tablet PO (20:33)
[2024-07-15] MEDS: Acetaminophen 500 MG Tablet 1000 MG PO ×3 (05:58→21:57)
[2024-07-15] MEDS: Pantoprazole Sodium 40 MG Tablet PO (05:58)
[2024-07-15 06:09] LABS: Absolute Neutrophil Count 4.4 X10^3/uL (2.0-7.7); Basophil# 0.07 X10^3/uL; Basophil% 0.9 % (0-1); Eosinophil# 0.32 X10^3/uL; Eosinophils% 4.1 % (0-5); Hematocrit 32.1 % (37-47); Hemoglobin 10.6 g/dL (12.0-15.0); Lymphocyte % 29.2 % (19-41); Mean Corpuscular Hgb 31.2 pg (27.0-32.0); Mean Corpuscular Volume 94.4 fL (81-99); Mean Platelet Vol. 10.2 fl (6.2-12.0); Monocyte# 0.73 X10^3/uL; Monocyte% 9.3 % (0-10); NRBC Flagged by Analyzer 0 % (0-5); Neutrophil % 55.7 % (47-70); Platelet Count 269 K/mm3 (150-450); RBC Distribution Width CV 12.9 % (11.6-14.6); White Blood Count 7.9 K/mm3 (4.4-11.0)
[2024-07-15 06:41] LABS: Anion Gap 6 (5-15); BUN 17 mg/dL (7-18); BUN/Creat Ratio 21.4 RATIO (10-20); Calcium,Total 9.5 mg/dL (8.5-10.1); Chloride 105 mmol/L (98-107); Creatinine, Serum 0.79 mg/dL (0.55-1.02); EST Glomerular Filtration Rate 77 mL/min (>60); Est Glom Filt Rate - Afr Amer 93 mL/min (>60); Estimated Creatinine Clearance 73.45 ml/min; Glucose 104 mg/dL (74-106); Potassium 4.1 mmol/L (3.5-5.1); Sodium Level 139 mmol/L (136-145)
[2024-07-15] MEDS: Ascorbic Acid 500 MG Tablet PO (08:33)
[2024-07-15] MEDS: Aspirin E.C. 81 MG Tablet PO ×2 (08:33→17:28)
[2024-07-15] MEDS: hydroCHLOROthiazide 12.5mg 12.5 MG PO (08:34)
[2024-07-15] MEDS: Cholecalciferol (VIT D3) 25 MCG TABLET (1,000 UNITS) PO (08:34)
[2024-07-15] MEDS: Senna/Docusate Sodium 1 Tablet 2 TABLET PO ×2 (08:34→21:57)
[2024-07-15] MEDS: Multivitamins,Therapeutic Tablet 1 TABLET PO (08:34)
[2024-07-15] MEDS: Nystatin Powder 15gm Bottle 1 APPLIC TOPICAL ×2 (08:35→21:58)
[2024-07-15] MEDS: Lisinopril 20 MG Tablet PO (08:35)
[2024-07-15 09:00] VITALS: BP 118/67; PULSE 75; RESP 16; TEMP 37.1; O2SAT 100
[2024-07-15] MEDS: Tuberculin,Purif.prot.deriv. 50 TU/ML Vial 0.1 ML ID (09:34)
[2024-07-15] MEDS: Latanoprost 0.005% 1 Bottle 1 DRP EACH EYE (21:56)
[2024-07-15] MEDS: Atorvastatin Calcium 20 MG Tablet PO (21:57)
[2024-07-16] MEDS: Acetaminophen 500 MG Tablet 1000 MG PO ×3 (06:20→20:40)
[2024-07-16] MEDS: Pantoprazole Sodium 40 MG Tablet PO (06:20)
[2024-07-16] MEDS: Multivitamins,Therapeutic Tablet 1 TABLET PO (08:56)
[2024-07-16] MEDS: Aspirin E.C. 81 MG Tablet PO ×2 (08:56→17:13)
[2024-07-16] MEDS: Ascorbic Acid 500 MG Tablet PO (08:56)
[2024-07-16] MEDS: Polyethylene Glycol 3350 17 GM PACKET PO (08:57)
[2024-07-16] MEDS: Cholecalciferol (VIT D3) 25 MCG TABLET (1,000 UNITS) PO (08:57)
[2024-07-16] MEDS: hydroCHLOROthiazide 12.5mg 12.5 MG PO (08:57)
[2024-07-16] MEDS: Senna/Docusate Sodium 1 Tablet 2 TABLET PO ×2 (08:58→20:40)
[2024-07-16] MEDS: Lisinopril 20 MG Tablet PO (08:59)
[2024-07-16 16:00] VITALS: BP 115/68; PULSE 74; RESP 18; TEMP 38.2; O2SAT 98
[2024-07-16 19:03] LABS: Bacteria 0 SEEN /hpf (None Seen); Mucous, Urine 0 SEEN /hpf (<or=2+); Red Blood Cells-Urine 0 SEEN /hpf (0-5); Squamous Epithelial Cells - UA 0 SEEN /hpf (5-10); White Blood Cells 0 SEEN /hpf (0-5)
[2024-07-16 19:07] LABS: Color, Urine Yellow (Yellow); Glucose, Dipstick Normal (Normal); Ketone-Dipstick Negative (Negative); Leukocyte Esterase-Dipstick Negative /ul (Negative); Nitrite-Dipstick Negative (Negative); Occult Blood-Urine 10 /ul (Negative); Protein-Dipstick Negative (Negative); Urine Bilirubin Dipstick Negative (Negative); Urine Clarity Clear (Clear); Urine Urobilinogen Normal (Normal)
[2024-07-16] MEDS: Atorvastatin Calcium 20 MG Tablet PO (20:41)
[2024-07-16] MEDS: Nystatin Powder 15gm Bottle 1 APPLIC TOPICAL (20:42)
[2024-07-16] MEDS: Latanoprost 0.005% 1 Bottle 1 DRP EACH EYE (20:42)
[2024-07-17] MEDS: Pantoprazole Sodium 40 MG Tablet PO (05:55)
[2024-07-17] MEDS: Acetaminophen 500 MG Tablet 1000 MG PO ×3 (05:56→22:57)
[2024-07-17 05:59] VITALS: TEMP 37.2
[2024-07-17 08:49] VITALS: BP 106/70; PULSE 71; RESP 17; TEMP 37.1; O2SAT 95
[2024-07-17] MEDS: hydroCHLOROthiazide 12.5mg 12.5 MG PO (08:54)
[2024-07-17] MEDS: Multivitamins,Therapeutic Tablet 1 TABLET PO (08:54)
[2024-07-17] MEDS: Ascorbic Acid 500 MG Tablet PO (08:54)
[2024-07-17] MEDS: Polyethylene Glycol 3350 17 GM PACKET PO (08:54)
[2024-07-17] MEDS: Aspirin E.C. 81 MG Tablet PO ×2 (08:54→16:11)
[2024-07-17] MEDS: Cholecalciferol (VIT D3) 25 MCG TABLET (1,000 UNITS) PO (08:54)
[2024-07-17] MEDS: Nystatin Powder 15gm Bottle 1 APPLIC TOPICAL ×2 (08:55→22:58)
[2024-07-17] MEDS: Senna/Docusate Sodium 1 Tablet 2 TABLET PO ×2 (08:55→22:57)
[2024-07-17] MEDS: Lisinopril 20 MG Tablet PO (08:56)
[2024-07-17] MEDS: Atorvastatin Calcium 20 MG Tablet PO (22:58)
[2024-07-17] MEDS: Latanoprost 0.005% 1 Bottle 1 DRP EACH EYE (22:59)
[2024-07-18] MEDS: Pantoprazole Sodium 40 MG Tablet PO (06:28)
[2024-07-18] MEDS: Acetaminophen 500 MG Tablet 1000 MG PO ×3 (06:28→21:06)
[2024-07-18 08:18] VITALS: BP 117/64; PULSE 71; RESP 18; TEMP 37.5; O2SAT 96
[2024-07-18] MEDS: Lisinopril 20 MG Tablet PO (08:24)
[2024-07-18] MEDS: Polyethylene Glycol 3350 17 GM PACKET PO (08:24)
[2024-07-18] MEDS: hydroCHLOROthiazide 12.5mg 12.5 MG PO (08:24)
[2024-07-18] MEDS: Senna/Docusate Sodium 1 Tablet 2 TABLET PO ×2 (08:24→21:06)
[2024-07-18] MEDS: Multivitamins,Therapeutic Tablet 1 TABLET PO (08:24)
[2024-07-18] MEDS: Ascorbic Acid 500 MG Tablet PO (08:24)
[2024-07-18] MEDS: Aspirin E.C. 81 MG Tablet PO ×2 (08:24→16:05)
[2024-07-18] MEDS: Cholecalciferol (VIT D3) 25 MCG TABLET (1,000 UNITS) PO (08:24)
[2024-07-18 08:29] VITALS: TEMP 36.6
[2024-07-18] MEDS: Nystatin Powder 15gm Bottle 1 APPLIC TOPICAL ×2 (08:30→21:07)
[2024-07-18] MEDS: Latanoprost 0.005% 1 Bottle 1 DRP EACH EYE (21:07)
[2024-07-18] MEDS: Atorvastatin Calcium 20 MG Tablet PO (21:08)
[2024-07-19] MEDS: Acetaminophen 500 MG Tablet 1000 MG PO ×3 (06:28→21:00)
[2024-07-19] MEDS: Pantoprazole Sodium 40 MG Tablet PO (06:28)
[2024-07-19 08:45] VITALS: BP 104/72; PULSE 89; RESP 16; TEMP 36.3; O2SAT 96
[2024-07-19] MEDS: Aspirin E.C. 81 MG Tablet PO ×2 (08:49→18:19)
[2024-07-19] MEDS: Multivitamins,Therapeutic Tablet 1 TABLET PO (08:49)
[2024-07-19] MEDS: Ascorbic Acid 500 MG Tablet PO (08:49)
[2024-07-19] MEDS: Senna/Docusate Sodium 1 Tablet 2 TABLET PO ×2 (08:49→20:59)
[2024-07-19] MEDS: hydroCHLOROthiazide 12.5mg 12.5 MG PO (08:49)
[2024-07-19] MEDS: Cholecalciferol (VIT D3) 25 MCG TABLET (1,000 UNITS) PO (08:49)
[2024-07-19] MEDS: Polyethylene Glycol 3350 17 GM PACKET PO (08:50)
[2024-07-19] MEDS: Lisinopril 20 MG Tablet PO (08:50)
[2024-07-19] MEDS: Nystatin Powder 15gm Bottle 1 APPLIC TOPICAL (08:51)
[2024-07-19 20:34] VITALS: PULSE 82; RESP 16; O2SAT 99
[2024-07-19] MEDS: Latanoprost 0.005% 1 Bottle 1 DRP EACH EYE (21:00)
[2024-07-19] MEDS: Atorvastatin Calcium 20 MG Tablet PO (21:00)
[2024-07-20] MEDS: Pantoprazole Sodium 40 MG Tablet PO (05:36)
[2024-07-20] MEDS: Acetaminophen 500 MG Tablet 1000 MG PO ×3 (05:36→22:14)
[2024-07-20] MEDS: Aspirin E.C. 81 MG Tablet PO ×2 (08:18→17:19)
[2024-07-20] MEDS: Multivitamins,Therapeutic Tablet 1 TABLET PO (08:18)
[2024-07-20] MEDS: Ascorbic Acid 500 MG Tablet PO (08:18)
[2024-07-20] MEDS: Cholecalciferol (VIT D3) 25 MCG TABLET (1,000 UNITS) PO (08:19)
[2024-07-20] MEDS: Polyethylene Glycol 3350 17 GM PACKET PO (08:19)
[2024-07-20] MEDS: hydroCHLOROthiazide 12.5mg 12.5 MG PO (08:19)
[2024-07-20] MEDS: Nystatin Powder 15gm Bottle 1 APPLIC TOPICAL ×2 (08:20→22:16)
[2024-07-20] MEDS: Senna/Docusate Sodium 1 Tablet 2 TABLET PO ×2 (08:21→22:15)
[2024-07-20] MEDS: Lisinopril 20 MG Tablet PO (08:22)
[2024-07-20 08:26] VITALS: BP 118/72; PULSE 73; RESP 15; TEMP 37.1; O2SAT 98
[2024-07-20] MEDS: Latanoprost 0.005% 1 Bottle 1 DRP EACH EYE (22:15)
[2024-07-20] MEDS: Atorvastatin Calcium 20 MG Tablet PO (22:16)
[2024-07-21] MEDS: Pantoprazole Sodium 40 MG Tablet PO (05:40)
[2024-07-21] MEDS: Acetaminophen 500 MG Tablet 1000 MG PO ×3 (05:41→22:13)
[2024-07-21] MEDS: Multivitamins,Therapeutic Tablet 1 TABLET PO (08:22)
[2024-07-21] MEDS: Aspirin E.C. 81 MG Tablet PO ×2 (08:22→17:33)
[2024-07-21] MEDS: Cholecalciferol (VIT D3) 25 MCG TABLET (1,000 UNITS) PO (08:22)
[2024-07-21] MEDS: Ascorbic Acid 500 MG Tablet PO (08:22)
[2024-07-21] MEDS: hydroCHLOROthiazide 12.5mg 12.5 MG PO (08:23)
[2024-07-21] MEDS: Nystatin Powder 15gm Bottle 1 APPLIC TOPICAL ×2 (08:23→22:14)
[2024-07-21] MEDS: Senna/Docusate Sodium 1 Tablet 2 TABLET PO ×2 (08:23→22:13)
[2024-07-21] MEDS: Polyethylene Glycol 3350 17 GM PACKET PO (08:23)
[2024-07-21] MEDS: Lisinopril 20 MG Tablet PO (08:24)
[2024-07-21 11:23] VITALS: BP 111/69; PULSE 77; RESP 16; TEMP 36.9; O2SAT 97
[2024-07-21 18:17] VITALS: BMI 37.8
[2024-07-21] MEDS: Latanoprost 0.005% 1 Bottle 1 DRP EACH EYE (22:13)
[2024-07-21] MEDS: Atorvastatin Calcium 20 MG Tablet PO (22:13)
[2024-07-21 22:15] VITALS: RESP 15
[2024-07-22] MEDS: Ascorbic Acid 500 MG Tablet PO (06:20)
[2024-07-22] MEDS: Polyethylene Glycol 3350 17 GM PACKET PO (06:20)
[2024-07-22] MEDS: Acetaminophen 500 MG Tablet 1000 MG PO ×3 (06:20→21:26)
[2024-07-22] MEDS: Pantoprazole Sodium 40 MG Tablet PO (06:20)
[2024-07-22] MEDS: Nystatin Powder 15gm Bottle 1 APPLIC TOPICAL (06:20)
[2024-07-22] MEDS: Cholecalciferol (VIT D3) 25 MCG TABLET (1,000 UNITS) PO (06:20)
[2024-07-22] MEDS: Lisinopril 20 MG Tablet PO (06:20)
[2024-07-22] MEDS: Multivitamins,Therapeutic Tablet 1 TABLET PO (06:20)
[2024-07-22] MEDS: hydroCHLOROthiazide 12.5mg 12.5 MG PO (06:20)
[2024-07-22] MEDS: Senna/Docusate Sodium 1 Tablet 2 TABLET PO ×2 (06:20→21:25)
[2024-07-22] MEDS: Aspirin E.C. 81 MG Tablet PO ×2 (06:20→18:07)
[2024-07-22 07:33] LABS: Absolute Lymphocyte Count 1.88 X10^3/uL (0.83-4.51); Absolute Neutrophil Count 3.3 X10^3/uL (2.0-7.7); Basophil# 0.06 X10^3/uL; Eosinophil# 0.19 X10^3/uL; Eosinophils% 3.1 % (0-5); Hematocrit 32.4 % (37-47); Hemoglobin 10.5 g/dL (12.0-15.0); Lymphocyte # 1.88 X10^3/ul (0.83-4.51); Lymphocyte % 30.7 % (19-41); Mean Corp Hgb Conc 32.4 g/dL (32-36); Mean Corpuscular Hgb 30.7 pg (27.0-32.0); Mean Corpuscular Volume 94.7 fL (81-99); Mean Platelet Vol. 10.7 fl (6.2-12.0); Monocyte# 0.71 X10^3/uL; Monocyte% 11.6 % (0-10); NRBC Flagged by Analyzer 0 % (0-5); Neutrophil # 3.26 X10^3/uL (2.7-7.7); Neutrophil % 53.3 % (47-70); Platelet Count 307 K/mm3 (150-450); RBC Distribution Width CV 12.9 % (11.6-14.6); RBC Distribution Width SD 44.6 fl (35.1-43.9); Red Blood Count 3.42 M/mm3 (4.2-5.4); White Blood Count 6.1 K/mm3 (4.4-11.0)
[2024-07-22 08:05] LABS: Anion Gap 6 (5-15); BUN 17 mg/dL (7-18); BUN/Creat Ratio 22.4 RATIO (10-20); Calcium,Total 9.3 mg/dL (8.5-10.1); Chloride 104 mmol/L (98-107); Creatinine, Serum 0.76 mg/dL (0.55-1.02); EST Glomerular Filtration Rate 81 mL/min (>60); Est Glom Filt Rate - Afr Amer 98 mL/min (>60); Estimated Creatinine Clearance 72.76 ml/min; Glucose 93 mg/dL (74-106); Potassium 3.9 mmol/L (3.5-5.1); Sodium Level 138 mmol/L (136-145)
[2024-07-22] MEDS: Atorvastatin Calcium 20 MG Tablet PO (21:26)
[2024-07-22] MEDS: Latanoprost 0.005% 1 Bottle 1 DRP EACH EYE (21:26)
[2024-07-23] MEDS: Pantoprazole Sodium 40 MG Tablet PO (06:20)
[2024-07-23] MEDS: Acetaminophen 500 MG Tablet 1000 MG PO ×2 (06:20→13:43)
[2024-07-23 06:30] VITALS: PULSE 68; RESP 16; O2SAT 96
[2024-07-23 08:20] VITALS: BP 110/65; PULSE 67; RESP 16; TEMP 36.5; O2SAT 98
[2024-07-23] MEDS: hydroCHLOROthiazide 12.5mg 12.5 MG PO (08:24)
[2024-07-23] MEDS: Senna/Docusate Sodium 1 Tablet 2 TABLET PO (08:24)
[2024-07-23] MEDS: Ascorbic Acid 500 MG Tablet PO (08:24)
[2024-07-23] MEDS: Aspirin E.C. 81 MG Tablet PO ×2 (08:24→16:54)
[2024-07-23] MEDS: Cholecalciferol (VIT D3) 25 MCG TABLET (1,000 UNITS) PO (08:24)
[2024-07-23] MEDS: Multivitamins,Therapeutic Tablet 1 TABLET PO (08:24)
[2024-07-23] MEDS: Lisinopril 20 MG Tablet PO (08:24)
[2024-07-23] MEDS: Polyethylene Glycol 3350 17 GM PACKET PO (08:24)
[2024-07-23] MEDS: Nystatin Powder 15gm Bottle 1 APPLIC TOPICAL (08:25)
[2024-07-23] MEDS: Iron Polysaccharide Complex 150 MG CAPSULE PO (11:36)
[2024-07-23 15:48] VITALS: BP 91/59; PULSE 80; RESP 14; TEMP 37; O2SAT 97
[2024-07-23 15:51] VITALS: BP 98/51
[2024-07-23 17:00] VITALS: BP 115/64
== END 2024-07-23 18:32 | disposition home or self-care (01) | DRG 561 ==
PROVIDERS: Internal Medicine; Admitting Provider Family Medicine Geriatric Medicine; PCP Family Medicine; Visit Provider Family Medicine Geriatric Medicine
DX: Z47.89 Encounter for other orthopedic aftercare (principal); T84.53XD Infection and inflammatory reaction due to internal right knee prosthesis, subsequent encounter; E66.01 Morbid (severe) obesity due to excess calories; I10 Essential (primary) hypertension; I71.20 Thoracic aortic aneurysm, without rupture, unspecified; E55.9 Vitamin D deficiency, unspecified; G47.33 Obstructive sleep apnea (adult) (pediatric); K21.9 Gastro-esophageal reflux disease without esophagitis; T84.012D Broken internal right knee prosthesis, subsequent encounter; Z68.38 Body mass index [BMI] 38.0-38.9, adult; R33.9 Retention of urine, unspecified; Z79.899 Other long term (current) drug therapy; Z79.82 Long term (current) use of aspirin; Y79.2 Prosthetic and other implants, materials and accessory orthopedic devices associated with adverse incidents; H40.9 Unspecified glaucoma
CPT/HCPCS: 36415; 80048; 80061; 81001; 82306; 83735; 85025; 87086; 87811; 97110; 97116; 97162; 97166; 97530; 97535; 97802

== ENCOUNTER 2025-07-06 17:53 | Emergency (ER) | payer MEDICARE, SELFPAY ==
[2025-07-06 17:54] VITALS: BP 192/99; PULSE 71; RESP 20; TEMP 36.1; O2SAT 100; BMI 40.6
[2025-07-06 19:23] VITALS: BP 169/87
--- NOTE | 2025-07-06 19:50 | EKG12_ITS ---
Test Reason : DYSRHYTHMIA Blood Pressure : */* mmHG Vent. Rate : 70 BPM Atrial Rate : 70 BPM P-R Int : 160 ms QRS Dur : 88 ms QT Int : 416 ms P-R-T Axes : 40 -7 25 degrees QTcB Int : 449 ms Normal sinus rhythm Normal ECG Confirmed by EMMANUEL BYRNE MD ([id number]), international editorial producer SEMAJ ZARAGOZA ([id number]) on 07/07/2025 7:30:23 AM Referred By: KENNETH Confirmed By: EMMANUEL BYRNE MD
--- NOTE | 2025-07-06 20:00 | RAD_ITS ---
PROCEDURE: CHEST PA AND LATERAL 07/06/2025 REASON FOR EXAM: CHEST PAIN TECHNIQUE: Procedure Code: RADCXR Modality: DX Procedure: CHEST PA AND LATERAL COMPARISON: None. FINDINGS: LUNGS AND PLEURA: No focal airspace consolidation. No pleural effusion or pneumothorax. HEART AND MEDIASTINUM: The heart size and mediastinal contours are normal. AORTA: Mildly calcified aortic arch. BONES: No acute osseous abnormality. Prior right shoulder arthroplasty. RAD/Chest PA and Lateral IMPRESSION: NO ACUTE FINDINGS. Reading Location: [id number]
[2025-07-06 20:04] LABS: Hematocrit 38.2 % (37-47); Hemoglobin 12.5 g/dL (12.0-15.0); Immature Granulocytes Count 0.010 X10^3/uL (0.0-0.0); Mean Corp Hgb Conc 32.7 g/dL (32-36); Mean Corpuscular Volume 93.4 fL (81-99); Mean Platelet Vol. 11.9 fl (6.2-12.0); NRBC Flagged by Analyzer 0 % (0-5); Platelet Count 204 K/mm3 (150-450); RBC Distribution Width CV 13.0 % (11.6-14.6); RBC Distribution Width SD 44.5 fl (35.1-43.9); Red Blood Count 4.09 M/mm3 (4.2-5.4); White Blood Count 6.2 K/mm3 (4.4-11.0)
--- NOTE | 2025-07-06 20:05 | CT_ITS ---
PROCEDURE: CT BRAIN/HEAD WITHOUT CONTRAST 07/06/2025 REASON FOR EXAM: HTN W/ HEADACHE TECHNIQUE: Procedure Code: CTBR Modality: CT Procedure: BRAIN/HEAD WITHOUT CONTRAST Coronal and Sagittal reconstruction series were provided. One or more dose reduction techniques were used (e.g., Automated exposure control, adjustment of the mA and/or kV according to patient size, use of iterative reconstruction technique. RADIATION DOSE SUMMARY: CTDlvol: 44.99 mGy DLP: 796.11 mGycm COMPARISON: 09/25/2022 FINDINGS: No acute intracranial hemorrhage, extra-axial collection, mass effect or evidence of acute infarct. Ventricles and subarachnoid spaces are normal in size. Orbital contents are unremarkable. Intact skull base and calvarium. Clear paranasal sinuses and mastoid air cells. CT/Brain/Head without Contrast IMPRESSION: No acute intracranial abnormality. Reading Location: [id number]
--- NOTE | 2025-07-06 20:06 | EX.ED.DYSGE1 ---
HPI History of Present Illness Chief Complaint: Hypertension Informant: patient and spouse/S.O. Onset/Context/Timing Onset: Weeks Context: Gradual Onset Timing: Intermittent Current Severity: Mild Maximum Severity: Mild Narrative Narrative: 70-year-old female history of hypertension previously was on hydrochlorothiazide and lisinopril. Had a near syncopal episode with a low blood pressure reading. Her primary care physician Dr. Vo stopped her hydrochlorothiazide and continue her on her lisinopril 40 mg a day. Said now her blood pressures are running between 122 270 systolic and 76-90 diastolic. Intermittent headaches. Today had some atypical nonexertional right-sided chest discomfort. She is currently on Celebrex due to inflammation in the knees. Prior similar symptoms: Yes Recent Illness/Hospitalization: No PFSH PFS Medical History Osteoporosis CPAP (continuous positive airway pressure) dependence Irregular heart beat AAA (abdominal aortic aneurysm) Fall Ascending aortic aneurysm SVT (supraventricular tachycardia) GERD (gastroesophageal reflux disease) BRYANNA (obstructive sleep apnea) Constipation Lung nodule Vaginal dryness Decreased libido Arthritis Hypertension Home Medications ?Medication ?Instructions ?Recorded ?Last Taken ?Type lisinopril 20 mg tablet 20 mg PO DAILY BLOOD PRESSURE 10/29/13 09/25/22 History multivitamin 1 tab PO DAILY HEALTH MAINTENANCE 06/09/21 09/25/22 History ascorbate calcium (vitamin C) 500 500 mg PO DAILY SUPPLEMENT 07/24/22 09/25/22 History mg tablet atorvastatin 20 mg tablet 20 mg PO QPM CHOLESTEROL 07/24/22 09/24/22 21:00 History cholecalciferol (vitamin D3) 25 25 mcg PO DAILY SUPPLEMENT 07/24/22 09/25/22 History mcg (1,000 unit) capsule zinc gluconate 50 mg tablet 50 mg PO DAILY SUPPLEMENT 07/24/22 09/25/22 History hydrochlorothiazide 12.5 mg capsule 12.5 mg PO DAILY diuretic 07/07/24 Unknown History latanoprost 0.005 % eye drops 1 drp EACH EYE QPM eyes 07/07/24 Unknown History pantoprazole 40 mg granules 40 mg PO DAILY GERD 07/07/24 07/07/24 06:00 History delayed-release for susp in packet (Protonix) acetaminophen 500 mg tablet 1,000 mg (2 x 500 mg) PO Q8 #0 tabs 07/20/24 Unknown Rx aspirin 81 mg tablet,delayed 81 mg PO BIDCM 12 days #0 tabs 07/20/24 Unknown Rx release doxycycline hyclate 100 mg capsule 100 mg PO BID 12 days #24 caps 07/20/24 Unknown Rx pantoprazole 40 mg tablet,delayed 40 mg PO DAILY@0600 30 days #30 07/23/24 Unknown Rx release tabs polysaccharide iron complex 150 mg 150 mg PO DAILY 30 days #30 caps 07/23/24 Unknown Rx iron capsule (Ferrex) Allergy/AdvReac Type Severity Reaction Status Date / Time Penicillins Allergy Rash Verified 07/06/25 17:54 Sulfa (Sulfonamide Allergy Rash Verified 07/06/25 17:54 Antibiotics) Family History Mother Diabetes Father BRYANNA (obstructive sleep apnea) Brother Heart disease Hypertension Myocardial infarction CAD (coronary artery disease) Surgical History History of right knee joint replacement History of hysterectomy H/O excision of mass History of bilateral carpal tunnel release History of breast lump/mass excision History of section Social History household members: spouse Smoking Status: Never smoker alcohol intake: never substance use type: does not use ROS ROS ED ROS Narrative Intermittent headaches. Atypical nonexertional chest pain today. Elevated blood pressure. Denies nausea vomiting or diarrhea. Denies fever or chills. Constitutional Constitutional ED: Denies chills or fever(s) Eyes Eyes: Denies blurry vision ENT ENT ED: Denies ear pain Cardiovascular Cardiovascular: Reports chest pain Respiratory/Chest Respiratory/Chest: Denies cough or dyspnea Gastrointestinal Gastrointestinal: Denies abdominal pain, diarrhea, nausea or vomiting Genitourinary Genitourinary ED: Denies dysuria or hematuria Integumentary Denies abscess Neurologic Neurologic: Denies headache(s) Psychiatric Psychiatric: Denies anxiety Endocrine Endocrinology: Denies cold intolerance Hematologic/Lymphatic Hematologic/Lymphatic: Reports none Allergic/Immunologic Allergic/Immunologic ED: Denies mouth swelling, tongue swelling or urticaria EXAM Physical Exam Narrative Exam Narrative: 70-year-old female sitting upright in bed vital signs stable initial blood pressure was 192/99 currently at 169/87. She does not look septic toxic she is in no distress. Clinically looks well. at bedside. H EENT exam pupils round react light. Moist mucous membranes. No facial droop. Normal speech. Neck nontender no JVD. Lungs clear to auscultation. Heart regular rhythm rate about 70 no murmur. Chest wall ribs nontender. Abdomen soft nontender. No peritoneal signs. Moving all 4 extremities. 1+ pitting edema both lower extremities. 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 Normal dorsi plantarflexion. Back nontender. Neurologically she is awake alert. Answer questions following commands. Benign exam. Const Vital Signs: 07/06/25 17:54 07/06/25 18:33 07/06/25 19:23 Temperature 97 F L Temperature Source Temporal Pulse Rate 71 Respiratory Rate 20 H Respiratory Pattern Normal Blood Pressure 192/99 H 169/87 H Blood Pressure Mean 130 114 Pulse Ox 100 Oxygen Delivery Method Room Air 07/06/25 19:54 07/06/25 21:00 07/06/25 22:51 Temperature 97 F L Temperature Source Pulse Rate 67 72 Respiratory Rate 16 16 Respiratory Pattern Blood Pressure 161/74 H 156/79 H Blood Pressure Mean 103 104 Pulse Ox 95 96 Oxygen Delivery Method Room Air Room Air MDM MDM MDM Narrative Medical decision making narrative: 70-year-old female acute on chronic hypertension after being taken off her hydrochlorothiazide 2 weeks ago because her pressures ran low on 1 episode. Her exam is benign. She undergo cardiac workup for atypical nonexertional chest pain and a CT of her brain due to headache with hypertension but my clinical suspicion is low. Repeat exam around 10:43 PM patient is doing well. Her blood pressures around 147/76. Discussed with her and her her test results. Outpatient follow-up. Will restart her HCTZ at her prior dose of 12.5 mg a day. Continue her lisinopril. Log her blood pressures and follow-up with primary care physician. They are both comfortable with the plan. History & Record Review Discussion w/independent historian: Patient and Family Additional record(s) reviewed:: Prior outpatient record and Prior labs Lab Data Attestation: I reviewed the patient's lab results. Lab results narrative: CBC shows a white count 6.2. H&H 12.5 and 38. Platelets 204. Chemistries show sodium 143. Gap 12. Normal BUN of 14 creatinine 0.9. Glucose 96. Initial troponin 15. 2-hour troponin 14. Chest x-ray unremarkable. Chronic changes. EKG unremarkable. Labs: Laboratory Results - last 24 hr 07/06/25 07/06/25 18:38 20:43 WBC 6.2 RBC 4.09 L Hgb 12.5 Hct 38.2 MCV 93.4 MCH 30.6 MCHC 32.7 RDW Std Deviation 44.5 H RDW Coeff of Sarah 13.0 Plt Count 204 MPV 11.9 Immature Gran % (Auto) 0.200 Neut % (Auto) 60.4 Lymph % (Auto) 26.8 [place] % (Auto) 9.1 Eos % (Auto) 2.9 Baso % (Auto) 0.6 Absolute Neuts (auto) 3.7 Absolute Lymphs (auto) 1.65 Nucleated RBC % 0 Sodium 143 Potassium 3.9 Chloride 105 Carbon Dioxide 25.5 Anion Gap 12 BUN 14 Creatinine 0.90 Estim Creat Clear Calc 66.43 Est GFR (MDRD) Non-Af 70 BUN/Creatinine Ratio 15.5 Glucose 96 Calcium 9.7 Troponin T High Sens 15 H Troponin T Hi Sens 2 Hr 14 Radiography Chest X-Ray - ED: Read by ED Physician, Read by Radiologist, Normal, Heart, Lungs, Mediastinum, Bony Structures, No Acute Disease and Chronic Changes Diagnostic Testing: Clinical Impression(s) from Imaging Studies Chest X-Ray 07/06/25 20:00 IMPRESSION: NO ACUTE FINDINGS. Reading Location: [facility] Brain CT 07/06/25 20:05 IMPRESSION: No acute intracranial abnormality. Reading Location: [facility] Chest x-ray, 2 views, AP and lateral, interpreted by myself and radiology shows normal cardiac silhouette. No mediastinum. Normal lung alvarez. Right shoulder replacement. No acute process. Chronic changes. Rhythm Strip Rhythm Strip: Sinus Rhythm Rate: 70 Ectopy: None EKG Initial EKG: Attestation: I personally reviewed and interpreted this EKG as follows: Interpretation: Sinus Rhythm and No Acute Injury Pattern Comments: Normal sinus rhythm rate of 70 no acute signs of MT or ischemia. Discharge Plan Triage Chief Complaint: Hypertension ED Provider: Josue Johnson Dx/Rx/DC Orders Clinical Impression: Hypertension Instructions: Hypertension Dc Prescriptions: No Action ascorbate calcium (vitamin C) 500 mg tablet 500 mg PO DAILY atorvastatin 20 mg tablet 20 mg PO QPM cholecalciferol (vitamin D3) 25 mcg (1,000 unit) capsule 25 mcg PO DAILY zinc gluconate 50 mg tablet 50 mg PO DAILY lisinopril 20 MG tablet 20 mg PO DAILY multivitamin Tablet 1 tab PO DAILY pantoprazole [Protonix] [address] for susp in packet 40 mg PO DAILY hydrochlorothiazide 12.5 mg capsule 12.5 mg PO DAILY latanoprost 0.005 % drops 1 drp EACH EYE QPM acetaminophen 500 mg Tablet 1,000 mg PO Q8 Qty: 0 0RF aspirin 81 mg Tablet,Delayed Release (Dr/Ec) 81 mg PO BIDCM 12 Days Qty: 0 0RF doxycycline hyclate 100 mg Capsule 100 mg PO BID 12 Days Qty: 24 0RF polysaccharide iron complex [Ferrex 150] 150 mg iron Capsule 150 mg PO DAILY 30 Days Qty: 30 0RF pantoprazole 40 mg Tablet,Delayed Release (Dr/Ec) 40 mg PO DAILY@0600 30 Days Qty: 30 0RF Primary Care Provider: Chuck Goldstein Referrals: Chuck Goldstein MD [Primary Care Provider, Family Practice] - As soon as possible Activity Restrictions/Additional Instructions: Your labs, x-ray, EKG and CAT scan all look good tonight. Restart your hydrochlorothiazide 12.5 mg a day take in the morning. Continue taking your current lisinopril at the current dose. Log your blood pressures twice daily taken in the morning when you are calm and relaxed and in the evening. Take those blood pressure readings your primary care physician when you follow-up in the next week to see how your blood pressures are running. If it is running too high or too low we may have to adjust the medications. For the time being you can continue your Celebrex. Print Language: Austrian Disposition Disposition: Home, Self Care
[2025-07-06 20:16] LABS: Anion Gap 12 (5-15); BUN 14 mg/dL (4-19); BUN/Creat Ratio 15.5 RATIO (10-20); Calcium,Total 9.7 mg/dL (7.6-11.0); Carbon Dioxide 25.5 mmol/L (21.0-32.0); Chloride 105 mmol/L (98-108); Estimated Creatinine Clearance 66.43 ml/min (50-250); Glucose 96 mg/dL (70-99); Potassium 3.9 mmol/L (3.3-5.1); Troponin T High Sensitivity 15 ng/L (<=14)
[2025-07-06 21:00] VITALS: BP 161/74; PULSE 67; RESP 16; O2SAT 95
[2025-07-06 21:07] LABS: Troponin T High Sens 2 HR 14 ng/L (<=14)
[2025-07-06 22:51] VITALS: BP 156/79; PULSE 72; RESP 16; TEMP 36.1; O2SAT 96
== END 2025-07-06 22:57 | disposition home or self-care (01) ==
PROVIDERS: Emergency Provider Emergency Medicine; PCP Family Medicine; Visit Provider Emergency Medicine
DX: I10 Essential (primary) hypertension (principal); Z79.899 Other long term (current) drug therapy; K21.9 Gastro-esophageal reflux disease without esophagitis; R09.89 Other specified symptoms and signs involving the circulatory and respiratory systems
CPT/HCPCS: 70450; 71046; 80048; 84484; 85025; 93005; 99283; A4216